=== PATIENT | female | born 1980 | race Caucasian/White ===

== ENCOUNTER 2017-03-08 09:08 | Emergency (ER) | payer BC, OTHER ==
[2017-03-08 09:18] VITALS: BP 125/80
--- NOTE | 2017-03-08 09:29 | UC ---
Throat Pain/Nasal Naun HPI - HPI Summary HPI Summary: COUGH X 3 DAYS + NASAL CONGESTION , PRODUCTIVE COUGH , FEVER, CHILLS, BODY ACHES - History of Current Complaint Chief Complaint: UCGeneralIllness Stated Complaint: FLU SYMPTOMS Time Seen by Provider: 03/08/17 09:18 Hx Obtained From: Patient Hx Last Menstrual Period: 02/26/17 ?: No Onset/Duration: Gradual Onset, Lasting Days - 2, Still Present Severity: Moderate Cough: Productive - YELLOW SPUTUM Associated Signs & Symptoms: Positive: Nasal Discharge, Fever - Allergies/Home Medications Allergies/Adverse Reactions: Allergies Allergy/AdvReac Type Severity Reaction Status Date / Time Azithromycin Allergy Severe Nausea And Verified 03/08/17 09:18 Vomiting Erythromycin Allergy Severe Nausea And Verified 03/08/17 09:18 Vomiting Home Medications: Home Medications NK [No Home Medications Reported] 03/08/17 [History Confirmed 03/08/17] PMH/Surg Hx/FS Hx/Imm Hx Endocrine History: Diabetes Respiratory History: Asthma - Surgical History Surgical History: Yes Surgery Procedure, Year, and Place: ear tubes. bariatric Surgery - Family History Known Family History: Positive: Diabetes - Social History Alcohol Use: None Substance Use Type: None Smoking Status (MU): Never Smoked Tobacco - Immunization History Most Recent Influenza Vaccination: not this season Review of Systems Constitutional: Negative Skin: Negative Eyes: Negative ENT: Nasal Discharge Respiratory: Cough Cardiovascular: Negative Gastrointestinal: Negative Is Patient Immunocompromised?: No All Other Systems Reviewed And Are Negative: Yes Physical Exam Triage Information Reviewed: Yes Appearance: No Pain Distress, Pain Distress, Obese Vital Signs: Initial Vital Signs Temp 98.8 F 03/08/17 09:13 Pulse 85 03/08/17 09:13 Resp 18 03/08/17 09:13 BP 125/80 03/08/17 09:13 Pulse Ox 100 03/08/17 09:13 Vital Signs Reviewed: Yes Eyes: Positive: Conjunctiva Clear ENT: Positive: Normal ENT inspection, Hearing grossly normal, Pharynx normal, Nasal congestion, Nasal drainage Neck: Positive: Supple, Nontender, No Lymphadenopathy Respiratory: Positive: Chest non-tender, Lungs clear, Normal breath sounds, No respiratory distress Cardiovascular: Positive: RRR, No Murmur, Pulses Normal Abdominal Exam: Normal Musculoskeletal Exam: Normal Neurological: Positive: Alert Skin Exam: Normal Throat Pain/Nasal Course/Dx - Differential Dx/Diagnosis Provider Diagnoses: VIRAL ILLNESS Discharge - Discharge Plan Condition: Stable Disposition: HOME Patient Education Materials: Viral Syndrome (ED) Forms: *Work Release Referrals: Humphrey Mckeon MD [Primary Care Provider] - 7 Days
== END 2017-03-08 09:30 | disposition home or self-care (01) ==
LOC: UCCORT 09:08
DX: B34.9 Viral infection, unspecified (principal)
CPT/HCPCS: 99211; G0463

== ENCOUNTER 2017-08-06 19:53 | Emergency (ER) | payer BC ==
[2017-08-06 20:02] VITALS: BP 150/81
--- NOTE | 2017-08-06 20:22 | UC ---
Complaint Female HPI - HPI Summary HPI Summary: For 1.5 weeks pt has noticed vulvar irritation, dryness, itching, no discharge. 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 PMD diagnosed PCOS, but has seen repro endo since then and no one has supported that. Gets regular menses, LMP 07/18/17. No longer diabetic since bariatric surgery. Denies any concerns about STIs, only sexually active with . Has tried using topical abx ointment without relief. - History Of Current Complaint Chief Complaint: UCGU Stated Complaint: VAGINAL IRRITATION Time Seen by Provider: 08/06/17 20:07 Hx Obtained From: Patient Hx Last Menstrual Period: 07/18/17 ?: No Onset/Duration: Gradual Onset, Lasting Days Timing: Constant Severity Initially: Mild Severity Currently: Moderate Pain Intensity: 4 Character: Dull, Burning Aggravating Factor(s): Urination Alleviating Factor(s): Position Associated Signs And Symptoms: Negative: Vaginal Discharge, Vomiting(# Of Episodes =) - Allergies/Home Medications Allergies/Adverse Reactions: Allergies Allergy/AdvReac Type Severity Reaction Status Date / Time azithromycin Allergy Nausea And Verified 08/06/17 20:02 Vomiting erythromycin base Allergy Nausea And Verified 08/06/17 20:02 Vomiting PMH/Surg Hx/FS Hx/Imm Hx Endocrine History: Diabetes - hx of, no longer active Respiratory History: Asthma - Surgical History Surgical History: Yes Surgery Procedure, Year, and Place: ear tubes. bariatric Surgery - Family History Known Family History: Positive: Diabetes - Social History Lives: With Family Alcohol Use: None Substance Use Type: None Smoking Status (MU): Never Smoked Tobacco - Immunization History Most Recent Influenza Vaccination: not this season Review of Systems Constitutional: Negative Skin: Negative Eyes: Negative ENT: Negative Respiratory: Negative Cardiovascular: Negative Gastrointestinal: Negative Genitourinary: Vaginal/Penile Burning, Vaginal/Penile Itching, Vaginal/Penile Pain Motor: Negative Neurovascular: Negative Musculoskeletal: Negative Neurological: Negative Psychological: Negative Is Patient Immunocompromised?: No All Other Systems Reviewed And Are Negative: Yes Physical Exam Triage Information Reviewed: Yes Appearance: No Pain Distress, Obese Vital Signs: Initial Vital Signs Temp 97.6 F 08/06/17 19:59 Pulse 72 08/06/17 19:59 Resp 18 08/06/17 19:59 BP 150/81 08/06/17 19:59 Pulse Ox 100 08/06/17 19:59 Vital Signs Reviewed: Yes Eye Exam: Normal Eyes: Positive: Conjunctiva Clear ENT Exam: Normal ENT: Positive: Normal ENT inspection, Hearing grossly normal, Pharynx normal, TMs normal Dental Exam: Normal Neck exam: Normal Neck: Positive: Supple, Nontender, No Lymphadenopathy Respiratory Exam: Normal Respiratory: Positive: Chest non-tender, Lungs clear, Normal breath sounds, No respiratory distress, No accessory muscle use Cardiovascular Exam: Normal Cardiovascular: Positive: RRR, No Murmur Pelvic Exam: Positive: Speculum Exam Normal, No Cerv. Motion Tender, Discharge - white, some curd-like. Negative: External Exam Normal - marked vulvar swelling and erythema, pt displays severe itching discomfort during exam Musculoskeletal Exam: Normal Neurological Exam: Normal Neurological: Positive: Alert Psychological Exam: Normal Skin Exam: Normal Complaint Female Dx - Differential Dx/Diagnosis Provider Diagnoses: Yeast vulvovaginitis Discharge - Sign-Out/Discharge Documenting (check all that apply): Discharge/Admit/Transfer - Discharge Plan Condition: Stable Disposition: HOME Prescriptions: Fluconazole [Diflucan 150 MG (NF)] 150 mg PO ONCE #1 tab Patient Education Materials: Yeast Infection (ED) Referrals: Humphrey Mckeon MD [Primary Care Provider] - 1 Week Additional Instructions: Use a 3-day yeast suppository medication in addition to the pill. If you need, you can do an additional 3 days. Please see your primary care provider if that does not fully reverse your symptoms. - Billing Disposition and Condition Condition: STABLE Disposition: HOME
--- NOTE | 2017-08-08 15:19 | UC ---
- Progress Note Progress Note: Culture with Anat - pt was treated with diflucan. No change. F/u if symptoms persist. Discharge - Sign-Out/Discharge Documenting (check all that apply): Post-Discharge Follow Up - Discharge Plan Condition: Stable Disposition: HOME Prescriptions: Fluconazole [Diflucan 150 MG (NF)] 150 mg PO ONCE #1 tab Patient Education Materials: Yeast Infection (ED) Referrals: Humphrey Mckeon MD [Primary Care Provider] - 1 Week Additional Instructions: Use a 3-day yeast suppository medication in addition to the pill. If you need, you can do an additional 3 days. Please see your primary care provider if that does not fully reverse your symptoms. - Billing Disposition and Condition Condition: STABLE Disposition: HOME
== END 2017-08-06 20:42 | disposition home or self-care (01) ==
LOC: UCEAST 19:53
DX: B37.3 Candidiasis of vulva and vagina (principal); J45.909 Unspecified asthma, uncomplicated; Z88.1 Allergy status to other antibiotic agents
CPT/HCPCS: 87480; 87491; 87510; 87591; 87661; 99212; G0463

== ENCOUNTER 2018-03-06 16:01 | Emergency (ER) | payer BC ==
[2018-03-06 16:09] VITALS: BP 133/74
--- NOTE | 2018-03-06 16:46 | UC ---
Lower Extremity/Ankle HPI - HPI Summary HPI Summary: 37 y/o female with PMh + for DM in remission, presents with L foot pain since tuesday, was moving her home over the weekend, increased pain with walking, standing, bending foot. + swelling today with increased pain. no prior injuries or accidents, denies trauma. no numbness/ tingling. - History of Current Complaint Chief Complaint: UCLowerExtremity Stated Complaint: FOOT INJURY Time Seen by Provider: 03/06/18 16:28 Hx Obtained From: Patient Hx Last Menstrual Period: 02/03/18 Onset/Duration: Sudden Onset, Lasting Days - since 03/04, swelling 03/06 Severity Initially: Moderate Severity Currently: Moderate Pain Intensity: 6 Pain Scale Used: 0-10 Numeric - Allergies/Home Medications Allergies/Adverse Reactions: Allergies Allergy/AdvReac Type Severity Reaction Status Date / Time azithromycin Allergy Nausea And Verified 03/06/18 16:10 Vomiting erythromycin base Allergy Nausea And Verified 03/06/18 16:10 Vomiting Home Medications: Home Medications NK [No Home Medications Reported] 03/06/18 [History Confirmed 03/06/18] PMH/Surg Hx/FS Hx/Imm Hx Previously Healthy: No - h/o DM remission - Surgical History Surgical History: Yes Surgery Procedure, Year, and Place: ear tubes. bariatric Surgery - Family History Known Family History: Positive: Diabetes - Social History Alcohol Use: None Substance Use Type: None Smoking Status (MU): Never Smoked Tobacco - Immunization History Most Recent Influenza Vaccination: not this season Review of Systems All Other Systems Reviewed And Are Negative: Yes Musculoskeletal: Positive: Arthralgia, Edema, Myalgia Is Patient Immunocompromised?: No Physical Exam Triage Information Reviewed: Yes Appearance: Well-Appearing, No Pain Distress, Well-Nourished Vital Signs: Initial Vital Signs Temp 98.2 F 03/06/18 16:06 Pulse 72 03/06/18 16:06 Resp 18 03/06/18 16:06 BP 133/74 03/06/18 16:06 Pulse Ox 100 03/06/18 16:06 Musculoskeletal Exam: Normal Musculoskeletal: Positive: Strength Intact - strength intact with ankle pro, sup , flex, ext, abd, add., ROM Intact - full toe, ankles ROM intact, Edema @ - over distal 1st metatarsal with TTP over Neurological Exam: Normal Neurological: Positive: Other: - PT DP 2+ Skin Exam: Normal Skin: Positive: Other - no ecchymosis, no open wounds/ sores. Lower Extremity Course/Dx - Course Course Of Treatment: radiograph- negative for fracture, post-op shoe given, continue to wear if symptoms improve may change to hard heeled shoe. FOllow up with orth oif no improvement. NSAIDs for pain, Elevate, ice - Differential Dx/Diagnosis Differential Diagnosis/HQI/PQRI: Fracture (Closed), Fracture (Open) Provider Diagnosis: Foot pain, left Discharge - Sign-Out/Discharge Documenting (check all that apply): Patient Departure All imaging exams completed and their final reports reviewed: Yes - Discharge Plan Condition: Good Disposition: HOME Patient Education Materials: Foot Fracture in Adults (ED) Forms: *Work Release Referrals: Humphrey Mckeon MD [Primary Care Provider] - Gopal Alston MD [Medical Doctor] - Additional Instructions: - Post op shoe given for possible stress fracture - IF symptoms continue, follow up with orthopedics within 3-5 days - If symptoms improve, progress to hard heeled shoe x 1-2 weeks - Elevate, Ice - Motrin /tylenol/ Naproxen as needed for pain - Billing Disposition and Condition Condition: GOOD Disposition: Home
== END 2018-03-06 17:05 | disposition home or self-care (01) ==
LOC: UCEAST 16:01
DX: M79.672 Pain in left foot (principal); X50.0XXA Overexertion from strenuous movement or load, initial encounter; Y93.89 Activity, other specified; Y92.009 Unspecified place in unspecified non-institutional (private) residence as the place of occurrence of the external cause; Z88.1 Allergy status to other antibiotic agents
CPT/HCPCS: 99212; G0463

== ENCOUNTER 2018-03-26 08:24 | Emergency (ER) | payer BC ==
--- OUTSIDE RECORDS SUMMARY | 2018-03-26 08:35 | XMS REPORT | Continuity of Care Document ---
:1980 External Reference #:[id number] Author Name Ankur Smiley Care Team Providers Name Role Phone Hans Pérez III, MD Primary Care Physician Unavailable Payers Type Date Identification Numbers Payment Provider Subscriber Policy Number: [id number] BS Joe Dougherty PayID: [id number] [address] [address] [place] [address] Effective: 2015 Policy Number: [id number] BS Joe Dougherty Expires: 2015 PayID: [id number] [address] [address] [place] [address] Expires: 2016 Policy Number: [id number] Medicaid Oscar Dougherty Group Name: 1 1 [address] PayID: [id number] [place] [address] Expires: 2016 Policy Number: [id number] Minh Oscar Dougherty Group Name: [id number] [address] PayID: [id number] [place] [address] Advance Directives Type Date Description Status Comment Other Directive 08/21/2013 Health Care Proxy Current and Verified Problems Date Description Provider Status Onset: 08/02/2013 Hyperlipidemia Nurse Visit C Active Onset: 08/02/2013 Type 2 diabetes mellitus Nurse Visit C Active Onset: 08/02/2013 Morbid obesity Kim Desir M.D. Active Onset: 02/25/2014 Right upper quadrant pain Humphrey Mckeon M.D. Active Onset: 02/25/2014 Backache Humphrey Mckeon M.D. Active Onset: 02/25/2014 Type II diabetes mellitus Humphrey Mckeon M.D. Active uncontrolled Onset: 05/02/2014 Hypersomnia with sleep apnea Jay Paz M.D. Active Onset: 07/18/2014 Obstructive sleep apnea syndrome Jay Paz M.D. Active Onset: 05/25/2016 Mixed hyperlipidemia Humphrey Mckeon M.D. 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 Tobacco Use Start: Unknown Never Smoked Cigarettes Smoking Status Reviewed: 03/17/18 Never Smoked Cigarettes ETOH Use Drinks Alcoholic Beverages Rarely Tobacco Use Start: Unknown Patient has never smoked Exercise Type/Frequency walking few times per week Allergies, Adverse Reactions, Alerts Date Description Reaction Status Severity Comments 07/31/2013 Erythromycin Active 07/31/2013 Azithromycin Active 12/11/2013 Seasonal Active 04/28/2015 [place] Active Medications Medication Date Status Form Strength Qnty SIG Indications Ordering Provider Vitamin D 02/09/ Active Capsules [id number] 12cap once weekly Miguel Angel (Ergocalcifero 2018 s x 12 weeks ALISE Rodas l) then start takign 1000 units daily Magnesium 02/09/ Active Tablets 400(241.3 30tab 1 by mouth Miguel Angel Oxide 2018 Mg) mg s every day ALISE Rodas Ferrous 02/09/ Active Tablets 325(65Fe) 30tab take one Miguel Angel Sulfate 2018 mg s tablet once ALISE Rodas daily Ventolin HFA / Active Aerosol 108(90Bas 1unit 2 puffs by Zsofia 0000 e) s mouth four Barry, mcg/Act times a day [employer] WORK[employer] as needed Medrol 09/16/ Hx TBPK 4mg 21uni take as M75.41 Amber 2018 - ts directed by Gio, 01/23/ packaging 2017 Sertraline HCL 10/29/ Hx Tablets 25mg 30tab 1 by mouth F34.1 Hans Aquino 2017 - s every day Elisa 09/09/ Tao 2017 Sertraline HCL 10/12/ Hx Tablets 50mg 30tab 1 by mouth F34.1 Hans Aquino 2017 - s every day Elisa, 10/29/ M.D. 2017 Sertraline HCL 09/09/ Hx Tablets 25mg 60tab 1 by mouth F34.1 Hans Aquino 2017 - s every day Elisa, 10/12/ M.D. 2017 Vitamin D-1000 05/25/ Hx Tablets 1000Unit 30tab 4 by mouth Humphrey Zambrano 2017 - s every day Pachikara Strength 09/09/ , M.D. 2017 Doxycycline 10/06/ Hx Tablets 100mg 28tab Finished R21 Hans Aquino Hyclnico 2015 - s Elisa, 10/12/ M.D. 2016 Freestyle Lite 02/14/ Hx Device 1unit check Shola Blood Glucose 2014 - s fingerstick Otilia Dee, Monitoring 10/12/ daily M.DMera,FACP System 2017 Tricor 05/31/ Hx Tablets 145mg 30tab 1 by mouth Humphrey 2015 - s every day Linda 06/06/ , M.Otilia 2014 Lovaza 05/31/ Hx Capsules 1gm 120ca 2 cap by Humphrey 2015 - ps mouth twice Dickika 04/28/ a day , M.DMera 2015 Nystatin-Triam 05/13/ Hx Cream 603326-4. 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 Metformin HCL 05/10/ Hx Tablets 1000mg 60tab 1 by mouth 250.02 Humphrey 2015 - s twice a day Linda 04/28/ , M.Otilia 2016 Lotrisone 05/10/ Hx Cream 1-0.05% 100gm twice a day 110.3 Humphrey 2015 - Dickikara 05/13/ , MEllis 2015 Diflucan 05/10/ Hx Tablets 150mg 1tabs 1 tab 1 dose 110.3 Humphrey 2015 - as needed Dickikara 04/28/ , M.Otilia 2016 Atorvastatin 05/10/ Hx Tablets 20mg 30tab 1 tab at 272.4 Humphrey Calcium 2014 - s bedtime Pacherasto 07/17/ , M.DMera 2014 Freestyle Lite 05/10/ Hx Strips 100un test daily E11.65 [place] Test 2014 - and as need, Pachika10/12/ dx code: , M.DMera 2016 250.02 Freestyle 05/10/ Hx Misc 100un daily and as E11.65 Humphrey Lancets 2014 - needed Linda , M.DMera 2016 Metformin HCL 05/01/ Hx Tablets 1000mg 1 by mouth Unknown 2014 - twice a day 2014 Januvia 02/25/ Hx Tablets 100mg 30tab 1 by mouth 250.02 Humph[facility] 2013 - [facility] 2016 Singulair 12/19/ Hx Tablets 10mg 30tab take 1 tab 995.3 Zsofia 2013 - s po q day Barry 05/13/ [employer] 2014 Accucheck 11/01/ Hx 100un check bs 2 250.00 Kim Paola Chem 2013 - its times/day Thang, Everardo 05/10/ M.DMera 2014 Accucheck 11/01/ Hx 100un pt to ck bs 250.00 Kim Jami 2013 - its 2x daily. in Thang, (Soft-Clix) 05/10/ the morning M.D. 2014 fasting and 2 hours after dinner dx code 250.02 Accucheck 11/01/ Hx as directed 250.00 Kim Glucomter Gaby - Thang 10/12/ M.DMera 2016 Glipizide 10/26/ Hx Tablets 5mg 60tab 1 by mouth Humphrey 2013 - s twice a day Linda 04/28/ , M.D. 2016 Lisinopril 08/21/ Hx Tablets 2.5mg 30tab Take One 791.0 Kim 2013 - s Tablet By Thang 04/28/ Mouth Every M.D. 2015 Day Fenofibrate 08/21/ Hx Tablets 160mg 30tab take one 272.4 Humphrey 2013 - s tablet by Linda 04/28/ mouth every , M.D. 2015 day Metformin HCL 07/31/ Hx Tablets ER 750mg 60tab 2 tab by 250.00 Kim ER 2013 - 24HR s mouth Desir, 02/25/ Neymar.Otilia 2013 Lantus 07/31/ Hx Solution 100Unit/M 3vial 50 units at 250.00 Humphrey 2013 - L s night Linda , Tao 2015 Insulin 07/31/ Hx Misc 28G X 100un use daily as 250.00 Humphrey Syringe 2013 - /2" 1 ML its directed Dickikara , Tao 2016 Metformin HCL / Hx Tablets 1000mg 180ta 1 by mouth Unknown 0000 - bs twice a day 2013 Glipizide / Hx Tablets 5mg 60tab 1 by mouth Unknown 0000 - s twice a day 2013 Omeprazole / Hx Capsules DR 20mg 1 po daily Unknown 0000 - 2015 Multi Vitamin /00/ Hx Tablets Unknown Daily 0000 - 2016 Biotin /00/ Hx 10,000mcg not taking 1 Unknown 0000 - po daily 2016 /00/ Hx Tablets 1 by mouth Unknown Vitamin 0000 - every day 2016 Estradiol /00/ Hx Tablets 2mg vaginally 2 Unknown 0000 - times every 2016 Prednisone 00/00/ Hx Tablets 5mg 1 by mouth 2 Unknown 0000 - times every 2016 Aspir-Low 00/ Hx Tablets DR 81mg 1 by mouth Unknown 0000 - every day 2016 Multi-Vitamin /00/ Hx Tablets 1 by mouth Unknown Daily 0000 - every day 2017 Immunizations CPT Code Status Date Vaccine Reaction Lot # [id number] Given 01/23/2018 Influenza Virus Vaccine, No immediate [id number] Quadrivalent, Split, reaction... Preservative Free [id number] Given 12/19/2013 Influenza Virus Vaccine, [id number] Quadrivalent, Split, Preservative Free Vital Signs Date Vital Result Comment 03/17/2018 8:21am Height 67 inches 5'7" Weight 265.00 lb Heart Rate 80 /min Respiratory Rate 18 /min Body Temperature 98.5 F Pain Level 4 BMI (Body Mass Index) 41.5 kg/m2 01/23/2018 1:45pm Height 67 inches 5'7" Weight 263.00 lb Heart Rate 82 /min BP Systolic 124 mmHg BP Diastolic 77 mmHg Body Temperature 98.1 F O2 % BldC Oximetry 100 % BMI (Body Mass Index) 41.2 kg/m2 09/16/2017 8:59am Height 67 inches 5'7" Weight 253.00 lb BP Systolic 128 mmHg BP Diastolic 82 mmHg Respiratory Rate 18 /min Body Temperature 97.7 F Pain Level 7 BMI (Body Mass Index) 39.6 kg/m2 09/09/2017 8:57am Height 67 inches 5'7" Weight 253.00 lb Heart Rate 72 /min BP Systolic Sitting 118 mmHg BP Diastolic Sitting 68 mmHg Pain Level 3 O2 % BldC Oximetry 99 % BMI (Body Mass Index) 39.6 kg/m2 10/12/2016 8:57am Height 67 inches 5'7" Weight 230.12 lb Heart Rate 69 /min BP Systolic Sitting 130 mmHg BP Diastolic Sitting 62 mmHg Body Temperature 97.6 F O2 % BldC Oximetry 99 % BMI (Body Mass Index) 36.0 kg/m2 09/09/2016 12:00pm Weight 230.00 lb Heart Rate 77 /min BP Systolic 108 mmHg BP Diastolic 62 mmHg O2 % BldC Oximetry 99 % 05/25/2016 2:18pm Height 67 inches 5'7" Weight 218.25 lb Heart Rate 78 /min BP Systolic Sitting 122 mmHg BP Diastolic Sitting 76 mmHg Body Temperature 97.6 F O2 % BldC Oximetry 99 % BMI (Body Mass Index) 34.2 kg/m2 02/06/2016 9:13am Weight 211.12 lb Heart Rate 65 /min BP Systolic 120 mmHg BP Diastolic 80 mmHg Body Temperature 98.0 F O2 % BldC Oximetry 98 % 10/07/2015 4:58pm Weight 207.00 lb Heart Rate 60 /min BP Systolic Sitting 116 mmHg BP Diastolic Sitting 78 mmHg Body Temperature 97.9 F O2 % BldC Oximetry 98 % 04/28/2015 1:08pm Height 67 inches 5'7" Weight 214.00 lb Heart Rate 68 /min BP Systolic Sitting 112 mmHg BP Diastolic Sitting 68 mmHg Body Temperature 97.1 F O2 % BldC Oximetry 98 % BMI (Body Mass Index) 33.5 kg/m2 07/18/2014 9:45am Height 67 inches 5'7" Weight 299.00 lb Heart Rate 89 /min BP Systolic Sitting 134 mmHg BP Diastolic Sitting 82 mmHg O2 % BldC Oximetry 97 % BMI (Body Mass Index) 46.8 kg/m2 Neck Circumference in inches 16 05/10/2014 8:17am Height 67 inches 5'7" Weight 289.75 lb Heart Rate 80 /min BP Systolic Sitting 149 mmHg BP Diastolic Sitting 95 mmHg BMI (Body Mass Index) 45.4 kg/m2 05/02/2014 12:59pm Height 67 inches 5'7" Weight 296.00 lb Heart Rate 90 /min BP Systolic Sitting 134 mmHg BP Diastolic Sitting 82 mmHg Respiratory Rate 20 /min Body Temperature 97.2 F O2 % BldC Oximetry 98 % BMI (Body Mass Index) 46.4 kg/m2 Neck Circumference in inches 16 02/25/2014 1:38pm Weight 301.50 lb Heart Rate 80 /min BP Systolic Sitting 144 mmHg BP Diastolic Sitting 82 mmHg Body Temperature 97.8 F O2 % BldC Oximetry 98 % 12/19/2013 8:27am Weight 299.00 lb Heart Rate 68 /min BP Systolic Sitting 119 mmHg BP Diastolic Sitting 75 mmHg Body Temperature 97.2 F O2 % BldC Oximetry 98 % 12/11/2013 3:51pm Weight 295.00 lb Heart Rate 68 /min BP Systolic Sitting 142 mmHg BP Diastolic Sitting 96 mmHg BP Systolic Standing 120 mmHg BP Diastolic Standing 76 mmHg Body Temperature 97.6 F O2 % BldC Oximetry 97 % 11/01/2013 3:44pm Weight 295.00 lb Heart Rate 84 /min BP Systolic Sitting 128 mmHg BP Diastolic Sitting 80 mmHg 08/21/2013 3:35pm Weight 294.00 lb Heart Rate 80 /min BP Systolic Sitting 128 mmHg BP Diastolic Sitting 72 mmHg 07/31/2013 2:03pm Height 66.5 inches 5'6.50" Weight 291.25 lb Heart Rate 89 /min BP Systolic Sitting 132 mmHg BP Diastolic Sitting 85 mmHg BMI (Body Mass Index) 46.3 kg/m2 Results Test Date Facility Test Result H/L Range Note Thyroid Panel 01/25/2018 [facility] Free T4 (Free 0.78 ng/dL N 0.61-1.[address] Thyroxine) [place] [address] [phone] Thyroxine 9.80 g/mL N 6.09-12.23 TSH (Thyroid Stim Horm) 1.58 mcIU/mL N 0.34-5.60 CBC Auto Diff 01/25/2018 [facility] White Blood 6.1 10^3/uL N 3.5-10.[address] [place] [address] [phone] Red Blood Count 4.82 10^6/uL N 4.00-5.40 Hemoglobin 8.5 g/dL Low 12.0-16.0 Hematocrit 28 % Low 35-47 Mean Corpuscular Volume 58 fL Low 80-97 Mean Corpuscular Hemoglobin 18 pg Low 27-31 Mean Corpuscular HGB Conc 31 g/dL N 31-36 Red Cell Distribution Width 18 % High 10.5-15 Platelet Count 234 10^3/uL N 150-450 Mean Platelet Volume 8.7 um3 N 7.4-10.4 Abs Neutrophils 3.6 10^3/uL N 1.5-7.7 Abs Lymphocytes 1.4 10^3/uL N 1.0-4.8 Abs Monocytes 0.7 10^3/uL N 0-0.8 Abs Eosinophils 0.3 10^3/uL N 0-0.6 Abs Basophils 0.1 10^3/uL N 0-0.2 Abs Nucleated RBC 0 10^3/uL Granulocyte % 59.4 % N 38-83 Lymphocyte % 22.7 % Low 25-47 Monocyte % 12.0 % High 0-7 Eosinophil % 5.0 % N 0-6 Basophil % 0.9 % N 0-2 Nucleated Red Blood Cells % 0 Vitamin B12 And 01/25/2018 [facility] Vitamin B12 366 pg/mL N 180-914 1 Folate Serum [address] [place] [address] [phone] Folic Acid (Folate) 14.03 ng/mL >3.99 Iron & Iron Binding 01/25/2018 [facility] Iron < 15 g/dL Low 50-212 [address] [place] [address] [phone] Unsaturated Iron Binding < 502 g/dL Total Iron Binding Capacity 517 g/dL High 250-450 Transferrin 369 mg/dL High 203-362 % Iron Saturation 3 % Low 15-55 Laboratory test 01/25/2018 [facility] Magnesium 1.6 mg/dL Low 1.9-2.7 finding [address] [place] [address] [phone] Vitamin D Total 25(Oh) 11.3 ng/mL Low 20-50 Basic Metabolic Panel 01/25/2018 [facility] Sodium 138 mmol/L N 135-[address] [place] [address] [phone] Potassium 4.4 mmol/L N 3.5-5.0 Chloride 105 mmol/L N 101-111 Co2 Carbon Dioxide 25 mmol/L N 22-32 Anion Gap 8 mmol/L N 2-11 Glucose 191 mg/dL High 70-100 Blood Urea Nitrogen 7 mg/dL N 6-24 Creatinine 0.54 mg/dL N 0.51-0.95 BUN/Creatinine Ratio 13.0 N 8-20 Calcium 8.7 mg/dL N 8.6-10.3 Egfr Non- 128.5 >60 Egfr 155.5 >60 2 Laboratory test 01/25/2018 [facility] Hemoglobin A1c 6.5 % High 4.0-5.6 [address] (Glyco HGB) [place] [address] [phone] Pathologist Review (SEE NOTE) 4 Laboratory 08/06/2017 [facility] Gardnerella/Yeast: SEE RESULT 5, 6 test finding [address] [place] [address] [phone] GC/Chlamydia 08/06/2017 [facility] Chlamydia Negative Negative Amplified Rna [address] [place] [address] [phone] Neisseria gonorrhoeae (GC) Rna Negative Negative Laboratory test 08/06/2017 [facility] Trichomonas Negative Negative [address] [place] [address] [phone] Laboratory test 05/25/2016 [facility] Hemoglobin A1c 5.8 5-7 finding Laboratory test 10/09/2015 [facility] Lyme Disease Negative N Negative [address] [place] [address] [phone] Laboratory test 04/28/2015 [facility] Hemoglobin A1c 5.8 5-7 finding Urine 04/18/2015 [facility] Ur Microalbumin 170.0 mg/L N Microalbumin [address] (mg/L) [place] [address] [phone] Urine Creatinine 283.01 mg/dL N Urine Microalbumin/Creatinine 60.0 ug/mg High <31 Lipid Panel 04/18/2015 [facility] Triglycerides 104 mg/dL N [address] [place] [address] [phone] Cholesterol 153 mg/dL N 10 HDL Cholesterol 46.7 mg/dL N 11 LDL Cholesterol 86 mg/dL N 12 CMP Panel 04/18/2015 [facility] Sodium 138 mmol/L N 133-[address] [place] [address] [phone] Potassium 4.0 mmol/L N 3.5-5.0 Chloride 103 mmol/L N 101-111 Co2 Carbon Dioxide 29 mmol/L N 22-32 Anion Gap 6 mmol/L N 2-11 Glucose 110 mg/dL High 70-100 Blood Urea Nitrogen 11 mg/dL N 6-24 Creatinine 0.60 mg/dL N 0.51-0.95 BUN/Creatinine Ratio 18.3 N 8-20 Calcium 9.6 mg/dL N 8.6-10.3 Total Protein 6.9 g/dL N 6.4-8.9 Albumin 4.1 g/dL N 3.2-5.2 Globulin 2.8 g/dL N 2-4 Albumin/Globulin Ratio 1.5 N 1-3 Total Bilirubin 0.70 mg/dL N 0.2-1.0 Alkaline Phosphatase 82 U/L N 34-104 Alt 22 U/L N 7-52 Ast 17 U/L N 13-39 Egfr Non- 115.9 N >60 Egfr 149.0 N >60 13 Laboratory test 02/26/2015 [facility] Rapid Strep Negative N Negative [address] [place] [address] [phone] Laboratory test 02/26/2015 [facility] Throat-Beta SEE RESULT [address] [place] [address] [phone] Urine 05/10/2014 Ur Microalbumin 205.0 mg/L N 16 Microalbumin (mg/L) Random Urine Creatinine 69.25 mg/dL N Urine Microalbumin/Creatinine 296.0 High Less Than 31 Comp Metabolic Panel 05/10/2014 Sodium 132 mmol/L Low 133-145 Potassium 4.6 mmol/L N 3.5-5.0 Chloride 95 mmol/L Low 101-111 Co2 Carbon Dioxide 28 mmol/L N 22-32 Anion Gap 9 mmol/L N 2-11 Glucose 346 mg/dL High 70-100 Blood Urea Nitrogen 10 mg/dL N 6-24 Creatinine 0.54 mg/dL N 0.51-0.95 BUN/Creatinine Ratio 18.5 N 8-20 Calcium 9.7 mg/dL N 8.6-10.3 Total Protein 7.4 g/dL N 6.4-8.9 Albumin 4.0 g/dL N 3.2-5.2 Globulin 3.4 g/dL N 2-4 Albumin/Globulin Ratio 1.2 N 1-3 Total Bilirubin 0.50 mg/dL N 0.2-1.0 Alkaline Phosphatase 100 U/L N 34-104 Alt 88 U/L High 7-52 Ast 80 U/L High 13-39 Egfr Non- 130.8 N >60 Egfr 168.3 N >60 17 Laboratory test 05/10/2014 TSH (Thyroid Stimulating 1.73 IU/mL N 0.34- 5.60 18 finding Horm) Lipid Profile 05/10/2014 Triglycerides 1238 mg/dL N 19 (Trig/Chol/HDL) Cholesterol 295 mg/dL N 20 HDL Cholesterol 37.6 mg/dL N 21 LDL Cholesterol (SEE NOTE) mg/dL N 22 Laboratory test 05/10/2014 [facility] Hemoglobin A1c 11.2 High 5-7 finding Urinalysis Profile 02/25/2014 [facility] Urine Color Yellow N [address] [place] [address] [phone] Urine Appearance Clear N Urine Specific [place] 1.033 High 1.010-1.030 Urine pH 5.0 N 5-9 Urine Urobilinogen Negative N Negative Urine Ketones Negative N Negative Urine Protein Negative N Negative Urine Leukocytes Negative N Negative Urine Blood Negative N Negative Urine Nitrite Negative N Negative Urine Bilirubin Negative N Negative Urine Glucose 3+(>=500 mg/dL) Abnormal Negative CBC Auto 02/25/2014 [facility] White Blood 11.3 10^3/uL High 4.8-10.[address] [place] [address] [phone] Red Blood Count 4.89 10^6/uL N 4.0-5.4 Hemoglobin 13.5 g/dL N 12.0-16.0 Hematocrit 40 % N 35-47 Mean Corpuscular Volume 81 fL N 80-97 Mean Corpuscular Hemoglobin 28 pg N 27-31 Mean Corpuscular HGB Conc 34 g/dL N 31-36 Red Cell Distribution Width 13 % N 10.5-15 Platelet Count 251 10^3/uL N 150-450 Mean Platelet Volume 8 um3 N 7.4-10.4 Abs Neutrophils 6.7 10^3/uL N 1.5-7.7 Abs Lymphocytes 3.3 10^3/uL N 1.0-4.8 Abs Monocytes 0.8 10^3/uL N 0-0.8 Abs Eosinophils 0.4 10^3/uL N 0-0.6 Abs Basophils 0.1 10^3/uL N 0-0.2 Abs Nucleated RBC 0 10^3/uL N Granulocyte % 59.4 % N 38-83 Lymphocyte % 29.2 % N 25-47 Monocyte % 6.9 % N 1-9 Eosinophil % 3.7 % N 0-6 Basophil % 0.8 % N 0-2 Nucleated Red Blood Cells % 0 N Laboratory test 02/25/2014 [facility] Serum Negative N Negative [address] [place] [address] [phone] Comp Metabolic 02/25/2014 [facility] Sodium 134 mmol/L N 133- [address] [place] [address] [phone] Potassium 3.8 mmol/L N 3.5-5.0 24 Chloride 101 mmol/L N 101-111 Co2 Carbon Dioxide 25 mmol/L N 22-32 Anion Gap 8 mmol/L N 2-11 Glucose 191 mg/dL High 70-100 Blood Urea Nitrogen 12 mg/dL N 6-24 Creatinine 0.49 mg/dL Low 0.51-0.95 BUN/Creatinine Ratio 24.5 High 8-20 Calcium 9.4 mg/dL N 8.6-10.3 Total Protein 7.1 g/dL N 6.4-8.9 Albumin 3.7 g/dL N 3.2-5.2 Globulin 3.4 g/dL N 2-4 Albumin/Globulin Ratio 1.1 N 1-3 Total Bilirubin 0.40 mg/dL N 0.2-1.0 Alkaline Phosphatase 78 U/L N 34-104 Alt 50 U/L N 7-52 Ast 33 U/L N 13-39 Egfr Non- 147.3 N >60 Egfr 189.4 N >60 25 Laboratory test 02/25/2014 [facility] C Reactive 23.17 High < 5.00 [address] Protein mg/[place] [address] [phone] Lipid Profile 12/03/2013 Triglycerides 222 mg/dL N 27 (Trig/Chol/HDL) Cholesterol 210 mg/dL N 28 HDL Cholesterol 43.0 mg/dL N 29 LDL Cholesterol 123 mg/dL N 30 Comp Metabolic Panel 12/03/2013 Sodium 138 mmol/L N 133-145 Potassium 4.5 mmol/L N 3.7-5.6 Chloride 103 mmol/L N 101-111 Co2 Carbon Dioxide 26 mmol/L N 22-32 Anion Gap 9 mmol/L N 2-11 Glucose 212 mg/dL High 70-100 Blood Urea Nitrogen 11 mg/dL N 6-24 Creatinine 0.57 mg/dL N 0.51-0.95 BUN/Creatinine Ratio 19.3 N 8-20 Calcium 9.6 mg/dL N 8.6-10.3 Total Protein 7.0 g/dL N 6.4-8.9 Albumin 3.9 g/dL N 3.2-5.2 Globulin 3.1 g/dL N 2-4 Albumin/Globulin Ratio 1.3 N 1-3 Total Bilirubin 0.60 mg/dL N 0.2-1.0 Alkaline Phosphatase 58 U/L N 34-104 Alt 81 U/L High 7-52 Ast 83 U/L High 13-39 Egfr Non- 123.7 N >60 Egfr 159.1 N >60 31 CBC Auto Diff 12/03/2013 White Blood Count 9.9 10^3/uL N 4.8-10.8 Red Blood Count 4.80 10^6/uL N 4.0-5.4 Hemoglobin 13.7 g/dL N 12.0-16.0 Hematocrit 40 % N 35-47 Mean Corpuscular Volume 82 fL N 80-97 Mean Corpuscular Hemoglobin 29 pg N 27-31 Mean Corpuscular HGB Conc 35 g/dL N 31-36 Red Cell Distribution Width 13 % N 10.5-15 Platelet Count 288 10^3/uL N 150-450 Mean Platelet Volume 8 um3 N 7.4-10.4 Abs Neutrophils 6.5 10^3/uL N 1.5-7.7 Abs Lymphocytes 2.3 10^3/uL N 1.0-4.8 Abs Monocytes 0.7 10^3/uL N 0-0.8 Abs Eosinophils 0.4 10^3/uL N 0-0.6 Abs Basophils 0.1 10^3/uL N 0-0.2 Abs Nucleated RBC 0.01 10^3/uL N Granulocyte % 65.6 % N 38-83 Lymphocyte % 23.0 % Low 25-47 Monocyte % 6.9 % N 1-9 Eosinophil % 3.9 % N 0-6 Basophil % 0.6 % N 0-2 Nucleated Red Blood Cells % 0.1 N Laboratory test finding 12/03/2013 Ferritin 168.2 ng/mL N 11-307 Vitamin B12 And Folate Serum 12/03/2013 Vitamin B12 479 pg/mL N 180-914 32 Folate > 20.00 ng/mL N >3.99 Laboratory test 12/03/2013 Hemoglobin A1c 9.1 % High Less than 6.0 33 finding Vitamin D, 25 12/03/2013 25-Hydroxy Vitamin <4.0 ng/mL N Hydroxy D2 25-Hydroxy Vitamin D3 26 ng/mL N 25-Hydroxy Vitamin D Total 26 ng/mL N 34 Laboratory test 12/03/2013 Iron 54 g/dL N 50-212 finding Laboratory test 10/26/2013 [facility] TSH (Thyroid 2.22 IU/mL N 0.34-5.[address] Stimulating Horm) [place] [address] [phone] Follicle Stimulating Hormone 4.6 IU/mL N 35 Luteinizing Hormone 3.0 IU/mL N 36 Prolactin 4.8 ng/mL N 1.0-25.0 Testosterone 55.27 ng/dL N 8-60 Estradiol 34.000 pg/mL N 37 Dhea Sulfate 221 g/dL N 31-228 38 Laboratory 10/26/2013 [facility] Hemoglobin A1c 9.3 % High Less 39, 40 test finding [address] than 6.0 [place] [address] [phone] Lipid Profile 10/26/2013 [facility] Triglycerides 230 N 41 (Trig/Chol/HDL [address] mg/dL ) [place] [address] [phone] Cholesterol 206 mg/dL N 42 HDL Cholesterol 48.5 mg/dL N 43 LDL Cholesterol 112 mg/dL N 44 Comp Metabolic Panel 08/02/2013 [facility] Sodium 134 mmol/L N 133-[address] [place] [address] [phone] Potassium 4.5 mmol/L N 3.7-5.6 Chloride 99 mmol/L Low 101-111 Co2 Carbon Dioxide 26 mmol/L N 22-32 Anion Gap 9 mmol/L N 2-11 Glucose 256 mg/dL High 70-100 Blood Urea Nitrogen 9 mg/dL N 6-24 Creatinine 0.53 mg/dL N 0.51-0.95 BUN/Creatinine Ratio 17.0 N 8-20 Calcium 9.0 mg/dL N 8.6-10.3 Total Protein 7.0 g/dL N 6.4-8.9 Albumin 4.0 g/dL N 3.2-5.2 Globulin 3.0 g/dL N 2-4 Albumin/Globulin Ratio 1.3 N 1-3 Total Bilirubin 0.60 mg/dL N 0.2-1.0 Alkaline Phosphatase 80 U/L N 34-104 Alt 79 U/L High 7-52 Ast 79 U/L High 13-39 Egfr Non- 134.6 N >60 Egfr 173.0 N >60 45 Lipid Profile 08/02/2013 [facility] Triglycerides 477 mg/dL N 46 (Trig/Chol/HDL) [address] [place] [address] [phone] Cholesterol 211 mg/dL N 47 HDL Cholesterol 39.6 mg/dL N 48 LDL Cholesterol (SEE NOTE) mg/dL N 49 Urine Microalbumin 07/31/2013 [facility] Ur Microalbumin 83.0 mg /dL N <30 [address] (mg/L) [place] [address] [phone] Urine Creatinine 70.46 mg/dL N Urine Microalbumin/Creatinine 117.7 High Less Than 31 Laboratory test finding 07/31/2013 [facility] Hemoglobin A1c 11.2 High 5-7 1 Normal Range 180 to 914 Indeterminate Range 145 to 180 Deficient Range <145 2 Because ethnic data is not always readily available, this report includes an eGFR for both -Americans and non- Americans. The National Kidney Disease Education Program (NKDEP) does not endorse the use of the MDRD equation for patients that are not between the ages of 18 and 70, are , have extremes of body size, muscle mass, or nutritional status, or are non- or non-. According to the National Kidney Foundation, irrespective of diagnosis, the stage of the disease is based on the level of kidney function: Stage Description GFR(mL/min/1.73 m(2)) 1 Kidney damage with normal or decreased GFR 90 2 Kidney damage with mild decrease in GFR 60-89 3 Moderate decrease in GFR 30-59 4 Severe decrease in GFR 15-29 5 Kidney failure <15 (or dialysis) 3 Therapeutic target for the treatment of diabetes mellitus patients is <7% HBA1C, and in selective patients <6.0%. Please refer to [place] Diabetes Association diabetic care guidelines for further information. 4 Microcytic anemia with red cell indices suggestive of iron deficiency. Additional studies clinically warranted. Reviewed by Dr. Riojas 5 Would you like to order Trichomonas Vaginalis RNA testing? Y [id number] 6 SEE RESULT BELOW Name: OSCAR DOUGHERTY : [address]: Hans Granger MD Acct: [id number] Unit: [id number] AGE: 37 Location: [facility] Re08/06/17 SEX: F Status: DEP ER SPEC: [id number] PATY: 08/06/[address]: Bruna Worley NP REQ: [id number] RECD: 08/07/17-1321 STATUS: [facility] DR: Humphrey Granger MD _ [facility] ORDERED: Roberto,Yeast DNA COMMENTS: Would you like to order Trichomonas Vaginalis RNA testing? Y [id number] Procedure Result Reported Site Gardnerella/Yeast: Vaginal DNA Final 08/08/17- 1045 ML Organism 1 Negative Gardnerella Organism 2 POSITIVE ANAT The presence of G. vaginalis, although suggestive, is not diagnostic for bacterial vaginosis. Results should be interpreted in conjuction with other clinical and laboratory data available. Women with vaginal discharge should be evaluated for risk factors of cervicitis and pelvic inflammatory disease, toxic shock syndrome (S.aureus), and if present, evaluated for organisms not included in this assay such as N. gonorrhoeae, C. trachomatis, Mobiluncus, Mycoplasma and/or Prevotella. Mixed infections may occur. The performance of this test on patient specimens collected during or immediately after antimicrobial therapy is unknown. The presence or absence of Anat species, or G. vaginalis cannot be used as a test for therapeutic success or failure. * ML - Main Lab . END OF REPORT DEPARTMENT OF PATHOLOGY, [address] [place] [address] Eduardo Riojas M.D. Director [facility] # [id number] GC/Chlamydia Source?: Endocervical Trichomonas Source: Endocervical 8 Serologic response to B. burgdorferi infection is not detected, but cannot rule out early infection during which low or undetectable antibody levels to B. burgdorferi may be present. If clinically indicated, a new serum specimen should be submitted in 7-14 days. Test Performed by: [address] [address] Assembl[employer] Piano: Goyo Alexander II, M.D., Ph.D. 9 Desirable <150 Borderline high 150-199 High 200-499 Very High >500 10 Desirable <200 Borderline high 200-239 High >239 11 Low <40 Desirable: 40-60 High: >60 12 Desirable: <100 mg/dL Near Optimal: 100-129 mg/dL Borderline High: 130-159 mg/dL High: 160-189 mg/dL Very High: >189 mg/dL 13 Because ethnic data is not always readily available, this report includes an eGFR for both -Americans and non- Americans. The National Kidney Disease Education Program (NKDEP) does not endorse the use of the MDRD equation for patients that are not between the ages of 18 and 70, are , have extremes of body size, muscle mass, or nutritional status, or are non- or non-. According to the National Kidney Foundation, irrespective of diagnosis, the stage of the disease is based on the level of kidney function: Stage Description GFR(mL/min/1.73 m(2)) 1 Kidney damage with normal or decreased GFR 90 2 Kidney damage with mild decrease in GFR 60-89 3 Moderate decrease in GFR 30-59 4 Severe decrease in GFR 15-29 5 Kidney failure <15 (or dialysis) 14 Business Law Teacher: MANOJ BRISCOE The loader operator and regulatory agencies both recommend that a throat culture for beta strep be performed if a Rapid Group A Strep assay yields a negative result. Therefore a culture will be automatically performed on all negative samples. 15 SEE RESULT BELOW Name: OSCAR DOUGHERTY : [address]: Stephon Larios MD Acct: [id number] Unit: [id number] AGE: 34 Location: [facility] Re02/26/15 SEX: F Status: DEP ER SPEC: [id number] PATY: 02/26/[address] [facility] [address]: Stephon Larios MD REQ: [id number] RECD: 02/27/15 STATUS: GEMINI REES DR: Humphrey Mckeon MD _ SOURCE: THROAT SPDESC: ORDERED: Throat Beta Str Procedure Result Reported Site Throat Beta Strep Culture Final 03/01/15- 1007 ML Negative For Group A Beta Streptococcus * ML - MAIN LAB ([facility]) . END OF REPORT * ML=Testing performed at Main Lab DEPARTMENT OF PATHOLOGY, [address] [place] [address] Eduardo Riojas M.D. Director [facility] # [id number] 16 PT IS FASTING 17 Because ethnic data is not always readily available, this report includes an eGFR for both -Americans and non- Americans. The National Kidney Disease Education Program (NKDEP) does not endorse the use of the MDRD equation for patients that are not between the ages of 18 and 70, are , have extremes of body size, muscle mass, or nutritional status, or are non- or non-. According to the National Kidney Foundation, irrespective of diagnosis, the stage of the disease is based on the level of kidney function: Stage Description GFR(mL/min/1.73 m(2)) 1 Kidney damage with normal or decreased GFR 90 2 Kidney damage with mild decrease in GFR 60-89 3 Moderate decrease in GFR 30-59 4 Severe decrease in GFR 15-29 5 Kidney failure <15 (or dialysis) 18 PT IS FASTING 19 Desirable <150 Borderline high 150-199 High 200-499 Very High >500 20 Desirable <200 Borderline high 200-239 High >239 21 Low <40 Desirable: 40-60 High: >60 22 Unable to calculate LDL as triglyceride is > 400 23 This test detects intact HCG only and is indicated for the early detection of . 24 Potassium reference range changed effective 01/27/14 25 Because ethnic data is not always readily available, this report includes an eGFR for both -Americans and non- Americans. The National Kidney Disease Education Program (NKDEP) does not endorse the use of the MDRD equation for patients that are not between the ages of 18 and 70, are , have extremes of body size, muscle mass, or nutritional status, or are non- or non-. According to the National Kidney Foundation, irrespective of diagnosis, the stage of the disease is based on the level of kidney function: Stage Description GFR(mL/min/1.73 m(2)) 1 Kidney damage with normal or decreased GFR 90 2 Kidney damage with mild decrease in GFR 60-89 3 Moderate decrease in GFR 30-59 4 Severe decrease in GFR 15-29 5 Kidney failure <15 (or dialysis) 26 Acute inflammation: >10.00 27 Desirable <150 Borderline high 150-199 High 200-499 Very High >500 28 Desirable <200 Borderline high 200-239 High >239 29 Low <40 Desirable: 40-60 High: >60 30 Desirable <100 Near Optimal 100-129 Borderline high 130-159 High 160-189 Very High >189 31 Because ethnic data is not always readily available, this report includes an eGFR for both -Americans and non- Americans. The National Kidney Disease Education Program (NKDEP) does not endorse the use of the MDRD equation for patients that are not between the ages of 18 and 70, are , have extremes of body size, muscle mass, or nutritional status, or are non- or non-. According to the National Kidney Foundation, irrespective of diagnosis, the stage of the disease is based on the level of kidney function: Stage Description GFR(mL/min/1.73 m(2)) 1 Kidney damage with normal or decreased GFR 90 2 Kidney damage with mild decrease in GFR 60-89 3 Moderate decrease in GFR 30-59 4 Severe decrease in GFR 15-29 5 Kidney failure <15 (or dialysis) 32 Normal Range 180 to 914 Indeterminate Range 145 to 180 Deficient Range <145 33 Therapeutic target for the treatment of diabetes Mellitus patients is <7% HBA1C, and in selective patients <6.0%.Please refer to [place] Diabetes Association Diabetic care guidelines for further information. 34 -- REFERENCE VALUE -- 25-HYDROXY D TOTAL (D2+D3) Optimum levels in the healthy population are 20-50, patients with bone disease may benefit from higher levels within this range. Test Performed by: [facility] [address] [id number] Assembler Piano: Abel Crook III, M.D. 35 Normally menstruating females - Follicular phase 3 - 9 - Mid-cycle peak 4 - 23 - Luteal phase 1 - 6 Postmenopausal females 16 - 114 36 Normally menstruating females - Follicular Phase 1 - 18 - Mid-Cycle Peak 24 - 105 - Luteal Phase 0.6 - 20 Postmenopausal females 15 - 62 37 Postmenopausal Females < 20 Ovulating females: by day in cycle relative to LH Peak Follicular phase - 12 10-50 - 4 60-200 Mid-cycle - 1 120-375 Luteal phase + 2 50-155 + 6 60-260 + 12 15-115 38 Test Performed by: [facility] [address] [place] [address] Assembler Piano: Abel Crook III, M.D. 39 FASTING 10 HOUR 40 Therapeutic target for the treatment of diabetes Mellitus patients is <7% HBA1C, and in selective patients <6.0%.Please refer to [place] Diabetes Association Diabetic care guidelines for further information. 41 Desirable <150 Borderline high 150-199 High 200-499 Very High >500 42 Desirable <200 Borderline high 200-239 High >239 43 Low <40 Desirable: 40-60 High: >60 44 Desirable <100 Near Optimal 100-129 Borderline high 130-159 High 160-189 Very High >189 45 Because ethnic data is not always readily available, this report includes an eGFR for both -Americans and non- Americans. The National Kidney Disease Education Program (NKDEP) does not endorse the use of the MDRD equation for patients that are not between the ages of 18 and 70, are , have extremes of body size, muscle mass, or nutritional status, or are non- or non-. According to the National Kidney Foundation, irrespective of diagnosis, the stage of the disease is based on the level of kidney function: Stage Description GFR(mL/min/1.73 m(2)) 1 Kidney damage with normal or decreased GFR 90 2 Kidney damage with mild decrease in GFR 60-89 3 Moderate decrease in GFR 30-59 4 Severe decrease in GFR 15-29 5 Kidney failure <15 (or dialysis) 46 Desirable <150 Borderline high 150-199 High 200-499 Very High >500 47 Desirable <200 Borderline high 200-239 High >239 48 Low <40 Desirable: 40-60 High: >60 49 Unable to calculate LDL as triglyceride is > 400 50 Microalbuminuria in a random sample is defined as: Microalbumin/Creatinine ratio of 30-299 ug/mg. Procedures Date Code Description Status 06/30/2014 17293 Polysomnography Sleep Staging 4+ Parameters Completed 11/01/2013 59459 EKG Tracing & Interpretation Completed 08/26/2013 [id number] Diabetic Retinal Eye Exam Completed 08/14/2013 [id number] Diabetic Retinal Eye Exam Completed 08/09/2011 31634 ECHO Stress Test Incl Perf Contiuous ekg Monitoring Completed W/Phys Superv Encounters Type Date Location Provider Dx Diagnosis Office Visit 01/23/2018 [facility] Internal Miguel Angel Rodas NP J02.9 Acute pharyngitis, 1:40p Medicine - unspecified [place] R13.10 Dysphagia, unspecified Z23 Encounter for immunization R22.1 Localized swelling, mass and lump, neck Office Visit 09/16/2017 9:00a Orthopedic Amber Powers, M75.41 Impingement Services Of [place] syndrome of right C.M.A. shoulder Office Visit 09/09/2017 9:00a [facility] Major Aquino M25.511 Pain in right Zurdo Pérez M.D. shoulder [place] Z98.84 Bariatric surgery status Office Visit 10/12/2016 9:00a [facility] Internal Hans Aquino F34.1 Dysthymic disorder [place] Office Visit 09/09/2016 11:40a [facility] Major Aquino F34.1 Dysthymic disorder [place] Office Visit 05/25/2016 2:20p [facility] Internal Humphrey E11.65 Type 2 diabetes Medicine - [place], mellitus with Rd Tao hyperglycemia E78.2 Mixed hyperlipidemia M79.652 Pain in left thigh Office Visit 02/06/2016 [facility] Major Aquino R59.9 Enlarged lymph 9:00a Zurdo Pérez M.D. nodes, unspecified [place] Office Visit 10/07/2015 [facility] Internal Hans Aquino R21 Rash and other 4:20p Zurdo Pérez M.D. nonspecific skin [place] eruption Office Visit 04/28/2015 [facility] Internal Hans Aquino E11.65 Type 2 diabetes 1:00p Zurdo Pérez M.D. mellitus with [place] hyperglycemia Office Visit 07/18/2014 Pulmonology And Jay SK. 327.23 Obstructive Sleep 3:15p Sleep Services Of [place] Paz Apnea Adult & [facility] Pediatric 278.01 Obesity Morbid V85.42 Body Mass Index 45.0-49.9, Adult Office Visit 05/10/2014 8:00a [facility] Internal Humphrey Mckeon, 250.02 Diabetes Medicine - Tao Mellitus W/O [place] Compl Type II Or Unspec Type Uncontrol 110.3 Dermatophytosis Groin & Perianal Area 272.4 Hyperlipidemia Other Unspec 278.01 Obesity Morbid 401.9 Hypertension Unspec Office Visit 05/02/2014 1:30p Pulmonology And Jay SK. 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 Quadrant 724.5 Backache Unspec 250.02 Diabetes Mellitus W/O Compl Type II Or Unspec Type Uncontrol Office Visit 12/19/2013 8:30a [facility] Internal Aubree Reddy, 388.70 Otalgia & Medicine - [employer] WORKER Earache Unspec [place] 995.3 Allergy Unspec v04.81 Need For Prophylactic Vaccination & Inoculation/Influenza Office Visit 12/11/2013 4:20p [facility] Internal Kim Desir, 791.0 Proteinuria Medicine - M.Otilia [place] 250.00 Diabetes Mellitus W/O Compl Type II Or Unspec Controlled 278.01 Obesity Morbid 272.4 Hyperlipidemia Other Unspec Office Visit 11/01/2013 4:00p [facility] Internal Kim Desir, 250.00 Diabetes Mellitus Medicine - MEllis W/O Compl Type II [place] Or Unspec Controlled 278.01 Obesity Morbid 272.4 Hyperlipidemia Other Unspec V72.84 Examination Preoperative Unspec Office Visit 08/21/2013 3:40p [facility] Internal Kim 272.4 Hyperlipidemia Other Medicine - [place] Desir Unspec [place] 250.00 Diabetes Mellitus W/O Compl Type II Or Unspec Controlled 791.0 Proteinuria V76.2 Screening Malignant Neoplasm Cervix Office Visit 07/31/2013 2:00p [facility] Internal Kim Desir, 250.00 Diabetes Mellitus Zurdo Whittaker M.D. W/O Compl Type II [place] Or Unspec Controlled 278.01 Obesity Morbid 272.4 Hyperlipidemia Other Unspec Plan of Treatment Future Appointment(s):04/18/2018 8:00 am - Gopal Alston MD at [facility]03/17/2018 - Gopal Alston, MDM84.375A Stress fracture, left foot, initial encounter for fractureFollow up:Follow Up: 1 month
[2018-03-26 08:36] VITALS: BP 153/76
[2018-03-26] MEDS ORDERED: Albuterol 2.5 MG/3 ML NEB.SOL* (0.083%) INH ONE (08:43)
[2018-03-26] MEDS ORDERED: predniSONE TAB* 20 MG PO ONE (08:43)
--- NOTE | 2018-03-26 08:44 | UC ---
UC General HPI - HPI Summary HPI Summary: 6 day hx worsening cough, congestion and sob. using mdi with little relief. hx asthma. began as a uri that moved into chest. - History of Current Complaint Chief Complaint: UCRespiratory Stated Complaint: COUGH,CONGESTION Time Seen by Provider: 03/26/18 08:35 Hx Obtained From: Patient Hx Last Menstrual Period: 03/03/18 Onset/Duration: Gradual Onset Timing: Constant Pain Intensity: 0 Associated Signs & Symptoms: Positive: Cough, SOB, Wheezing. Negative: Chest Pain, Fever - Allergy/Home Medications Allergies/Adverse Reactions: Allergies Allergy/AdvReac Type Severity Reaction Status Date / Time azithromycin Allergy Nausea And Verified 03/26/18 08:37 Vomiting erythromycin base Allergy Nausea And Verified 03/26/18 08:37 Vomiting PMH/Surg Hx/FS Hx/Imm Hx Respiratory History: Asthma - Surgical History Surgical History: Yes Surgery Procedure, Year, and Place: ear tubes. bariatric Surgery - Family History Known Family History: Positive: Diabetes - Social History Occupation: Employed Full-time Alcohol Use: None Substance Use Type: None Smoking Status (MU): Never Smoked Tobacco - Immunization History Most Recent Influenza Vaccination: not this season Vaccination Up to Date: Yes Review of Systems All Other Systems Reviewed And Are Negative: Yes Constitutional: Positive: Negative Skin: Positive: Negative Eyes: Positive: Negative ENT: Positive: Negative Respiratory: Positive: Shortness Of Breath, Cough Cardiovascular: Positive: Negative Gastrointestinal: Positive: Negative Genitourinary: Positive: Negative Motor: Positive: Negative Neurovascular: Positive: Negative Musculoskeletal: Positive: Negative Neurological: Positive: Negative Psychological: Positive: Negative Physical Exam Triage Information Reviewed: Yes Appearance: Well-Appearing Vital Signs: Initial Vital Signs Temp 98.0 F 03/26/18 08:34 Pulse 88 03/26/18 08:34 Resp 20 03/26/18 08:34 BP 153/76 03/26/18 08:34 Pulse Ox 100 03/26/18 08:34 Vital Signs Reviewed: Yes Eyes: Positive: Conjunctiva Clear ENT: Positive: Pharynx normal, TMs normal. Negative: Nasal congestion, Nasal drainage Neck: Positive: Supple, Nontender, No Lymphadenopathy Respiratory: Positive: No respiratory distress, Decreased breath sounds, Other: - Frequent NPC Cardiovascular: Positive: RRR, No Murmur Abdomen Description: Positive: Nontender, No Organomegaly, Soft Bowel Sounds: Positive: Present Musculoskeletal: Positive: ROM Intact Neurological: Positive: Alert Psychological: Positive: Age Appropriate Behavior Skin Exam: Normal Diagnostics - Radiology No standard instances Radiology Interpretation Completed By: Radiologist - cxr=No radiographic evidence of acute cardiopulmonary disease. Re-Evaluation - Re-Evaluation First Eval Re-Evaluation Time: 09:07 Change: Improved - MUCH BETTER AERATION, LESS COUGH AND PT FEELS BETTER. Course/Dx - Course Course Of Treatment: No hx HTN, BP illness related. - Differential Dx - Multi-Symptom Differential Diagnoses: Other - ASTHMA, PNEUMONIA, BRONCHITIS - Diagnoses Provider Diagnosis: Asthma exacerbation Discharge - Sign-Out/Discharge Documenting (check all that apply): Patient Departure All imaging exams completed and their final reports reviewed: Yes - Discharge Plan Condition: Stable Disposition: HOME Prescriptions: Albuterol HFA INHALER* [Ventolin HFA Inhaler*] 2 puff INH Q6H #1 mdi DOXYcycline CAP(*) [DOXYcycline 100MG CAP(*)] 100 mg PO BID 7 Days #14 cap predniSONE [Deltasone 20 MG TAB] 40 mg PO DAILY 4 Days #8 tablet Patient Education Materials: Asthma (DC) Forms: *Work Release Referrals: Humphrey Mckeon MD [Primary Care Provider] - 5 Days - Billing Disposition and Condition Condition: STABLE Disposition: Home
== END 2018-03-26 09:17 | disposition home or self-care (01) ==
LOC: UCCORT 08:24
DX: J45.901 Unspecified asthma with (acute) exacerbation (principal); Z88.4 Allergy status to anesthetic agent
CPT/HCPCS: 71046; 99212; G0463; J7512

== ENCOUNTER 2018-10-30 17:17 | Emergency (ER) | payer SELFPAY ==
--- NOTE | 2018-10-30 17:42 | UC ---
Throat Pain/Nasal Naun HPI - HPI Summary HPI Summary: 38 yo female presents with sinus pain/pressure/congestion, sore throat, and dry cough for the last month. She initially took mucinex and OTC cold medicine in addition to her albuterol inhaler with good relief and thought she was getting better. Over the last 1.5 weeks, however, she has been feeling her symptoms return "with a vengeance". She is continuing to use her inhaler, but states she is getting low. She does feel short of breath intermittently, but states she does not feel she is at the point where she needs a nebulizer treatment as she has a long history of asthma and is familiar with these. She has not taken her temperature, but has felt feverish. Denies productive cough, chest pain, rash, abdominal pain, n/v. - History of Current Complaint Stated Complaint: SINUSES Time Seen by Provider: 10/30/18 17:41 Hx Obtained From: Patient Hx Last Menstrual Period: 03/03/18 Onset/Duration: Gradual Onset Severity: Moderate Pain Intensity: 6 Pain Scale Used: 0-10 Numeric Cough: Nonproductive - Allergies/Home Medications Allergies/Adverse Reactions: Allergies Allergy/AdvReac Type Severity Reaction Status Date / Time azithromycin Allergy Nausea And Verified 10/30/18 17:43 Vomiting erythromycin base Allergy Nausea And Verified 10/30/18 17:43 Vomiting Home Medications: Home Medications guaiFENesin ER TAB [Mucinex*] 600 mg PO BID 10/30/18 [History Confirmed 10/30/18 ] PMH/Surg Hx/FS Hx/Imm Hx Respiratory History: Asthma - Surgical History Surgical History: Yes Surgery Procedure, Year, and Place: ear tubes. bariatric Surgery - Family History Known Family History: Positive: Diabetes - Social History Occupation: Employed Full-time Lives: With Family Alcohol Use: None Substance Use Type: None Smoking Status (MU): Never Smoked Tobacco - Immunization History Most Recent Influenza Vaccination: not this season Vaccination Up to Date: Yes Review of Systems All Other Systems Reviewed And Are Negative: Yes Constitutional: Positive: Negative Skin: Positive: Negative Eyes: Positive: Negative ENT: Positive: Nasal Discharge, Sinus Congestion, Sinus Pain/Tenderness Respiratory: Positive: Cough Cardiovascular: Positive: Negative Gastrointestinal: Positive: Negative Neurovascular: Positive: Negative Neurological: Positive: Negative Psychological: Positive: Negative Physical Exam - Summary Physical Exam Summary: GENERAL: NAD. WDWN. No pain distress. SKIN: No rashes, sores, lesions, or open wounds. HEENT: Head: AT/NC Eyes: EOM intact. Conjunctiva clear without inflammation or discharge. Ears: Hearing grossly normal. TMs intact, no bulging, erythema, or edema. Nose: Nasal mucosa mildly swollen and erythematous without discharge. TTP maxillary and frontal sinus. Positive post nasal drip Throat: Posterior oropharynx without exudates, erythema, or tonsillar enlargement. Uvula midline. NECK: Supple. Nontender. No lymphadenopathy. CHEST: Scattered wheezes throughout. No accessory muscle use. Breathing comfortably and in no distress. CV: RRR. Without m/r/g. Pulses intact. NEURO: Alert. PSYCH: Age appropriate behavior. Triage Information Reviewed: Yes Vital Signs: Vital Signs: Temp Pulse Resp BP Pulse Ox 100.4 F 66 16 124/60 100 10/30/18 17:39 10/30/18 17:39 10/30/18 17:39 10/30/18 17:39 10/30/18 17:39 Vital Signs Reviewed: Yes Throat Pain/Nasal Course/Dx - Course Course Of Treatment: Sinusitis. Asthma exacerbation. - Differential Dx/Diagnosis Provider Diagnosis: Sinusitis, Asthma exacerbation Discharge - Sign-Out/Discharge Documenting (check all that apply): Patient Departure All imaging exams completed and their final reports reviewed: No Studies - Discharge Plan Condition: Stable Disposition: HOME Prescriptions: Albuterol HFA INHALER* [Ventolin HFA Inhaler*] 1 puff INH Q6H PRN #1 mdi PRN Reason: Wheezing Amoxicillin/Clavulanate TAB* [Augmentin TAB 875*] 875 mg PO BID #14 tab predniSONE TAB* [Deltasone 20 MG TAB*] 40 mg PO DAILY #10 tab Patient Education Materials: Sinusitis (ED) Referrals: No Primary Care Phys,NOPCP [Primary Care Provider] - Additional Instructions: If you develop a fever, shortness of breath, chest pain, new or worsening symptoms - please call your PCP or go to the ED immediately. Continue taking mucinex and tylenol/ibuprofen as directed for discomfort or fever - Billing Disposition and Condition Condition: STABLE Disposition: Home - Attestation Statements Provider Attestation: Per institutional requirements, I have reviewed the chart, however, I was not consulted specifically or made aware of this patient by the midlevel provider. I did not personally evaluate, interact with , or disposition this patient.
[2018-10-30 17:43] VITALS: BP 124/60
== END 2018-10-30 18:05 | disposition home or self-care (01) ==
LOC: UCCORT 17:17
DX: J45.901 Unspecified asthma with (acute) exacerbation (principal)
CPT/HCPCS: 99212; G0463

== ENCOUNTER 2019-06-16 07:29 | Emergency (ER) | payer BC ==
--- OUTSIDE RECORDS SUMMARY | 2019-06-16 07:45 | XMS REPORT | Continuity of Care Document ---
:1980 External Reference #:[id number] Author Name Asha Boo, BILLING AND INSURANCE COORDINATOR Address [address] [place] [address] Care Team Providers Name Role Phone Laila Thompson PA - Physician Program Schedule Clerk Care Team Information [place] Problems Active Problems Provider Date Malaise and fatigue Nahomi Wright DO Onset: 03/29/2019 Bariatric surgery status Nahomi Wright DO Onset: 03/29/2019 Anemia Nahomi Wright DO Onset: 03/29/2019 Social History Type Date Description Comments Sex Unknown Allergies, Adverse Reactions, Alerts Active Allergies Reaction Severity Comments Date Zithromax hives and GI 03/29/2019 Erythromycin hives and GI 03/29/2019 Medications Active Medications SIG Qnty Indications Ordering Date Provider Ergocalciferol 1 cap by mouth 8caps Kyle 05/17/2019 1.25mg every week DO Nahomi ([address] [address]) Capsules Sertraline HCL 1 by mouth every Unknown 50mg Tablets day Ventolin HFA take 2 puffs Unknown 108(90Base) every 6 hours as mcg/Act Aerosol needed for shortness of breath. History Medications Methylprednisolone take by mouth as 21units Kyle 04/20/2019 - 4mg TBPK directed DO Nahomi 05/07/2019 Immunizations Description No Information Available Vital Signs Date Vital Result Comment 05/17/2019 7:58am BP Systolic 155 mmHg left BP Diastolic 74 mmHg left Body Temperature 97.5 F Heart Rate 89 /min Respiratory Rate 16 /min Weight 277.25 lb Pain Level 0 O2 % BldC Oximetry 98 % Ra 04/20/2019 12:21pm BP Systolic 132 mmHg BP Diastolic 75 mmHg Body Temperature 99.1 F Heart Rate 71 /min Respiratory Rate 18 /min Results Test Acquired Date Facility Test Result H/L Range Note RBC Morphology 05/17/2019 [facility] Hypochromia 1+ Normal [address] [place] [address] [phone] Poikilocytosis 0-1+ Normal Anisocytosis 2+ Normal Microcytosis 2+ Normal Michelet Cells 0-1+ Normal Comment MORPH ADDED Normal Slide Review 05/17/2019 [facility] Slide Review (SEE NOTE) 2 [address] [place], [place] [id number] [phone] Systemic Lupus 05/17/2019 [facility] Ra Latex <10.0 IU/mL 0.0-13.9 Erythem. Profil [address] [place] [address] [phone] Anti-Dna Antibody ([place]) <1 IU/mL 0-9 3 SM Antibody <0.2 AI 0.0-0.9 TAX STAFF ACCOUNTANT Antibody <0.2 AI 0.0-0.9 Sjogrens Antibodies (Ssa) <0.2 AI 0.0-0.9 Antichromatin Antibodies <0.2 AI 0.0-0.9 Sjogrens Antibodies (SSB) <0.2 AI 0.0-0.9 Lyme AB/Western 05/17/2019 [facility] Lyme Total < 0.91 ISR 0.00-0.90 4 Blot Reflex [address] [facility] [facility] [address] [phone] Lyme Disease Antibody,QT,Igm < 0.80 index 0.00-0.79 5 Rheumatoid 05/17/2019 [facility] Sedimentation 16 mm/hr Normal 2-40 6 Panel ([facility]) [address] [place] [address] [phone] Uric Acid 6.7 mg/dL High 2.6-6.0 Rheumatoid Factor Screen < 10.0 IU/mL < 15.0 C-Reactive Protein,Quant 9.3 mg/L High <3.0 Antinuclear Antibodies, Ifa Negative . 7 Laboratory test 05/17/2019 [facility] Ebv Early <9.0 U/mL 0.0-8.[address] Antigen AB, [place] [address] [phone] Immunoglobulin E,Total 84 IU/mL 6-495 Ebv Acute 05/17/2019 [facility] Ebv AB Vca,Igm <36.0 U/mL 0.0-35.9 [address] [place] [address] [phone] Ebv AB Vca,Igg >600.0 U/mL High 0.0-17.9 10 Ebv Nuclear Antigen AB, Igg <18.0 U/mL 0.0-17.9 11 Ebv Interpretation . 12 WB Ebv PCR 05/17/2019 [facility] Ebv PCR 173 copies/m Negative [address] Quant([place] [address] Blood) [phone] log10 Ebv Dna Qn PCR 2.238 [id number] . 14 Laboratory test 05/17/2019 [facility] LDH 160 U/L Normal 84-246 finding [address] [place] [address] [phone] Reticulocyte 05/17/2019 [facility] Retic 21.7 pg Low 27.9-37.0 Count,Automated [address] [facility] [place] [address] [phone] Retic % 0.7 % Normal 0.5-1.8 Absolute Retic 39 K/uL Normal 24-84 Immature Retic Fraction 14.4 % Normal 2.9-15.5 Laboratory 05/17/2019 [facility] Vitamin 11.9 Low 30.0-100.0 15 test finding [address] D,25-Hydroxy ng/[place] [address] [phone] Vitamin B12 05/17/2019 [facility] Vitamin B12 629 Normal 193-9[address] pg/[place] [address] [phone] Folic Acid 18.7 ng/mL High 3.1-17.5 Laboratory test 05/17/2019 [facility] Ferritin 22 ng/mL Normal 8-252 finding [address] [place] [address] [phone] Iron-Tibc-%Sat 05/17/2019 [facility] Serum Iron 20 g/dL Low 50-[address] [place] [address] [phone] Total Iron Binding Capacity 423 g/dL Normal 250-450 Transferrin %Saturation 5 % Low 12-57 Comprehensive Metabolic 05/17/2019 [facility] Glucose 181 mg/dL High 74-106 Panel [address] [place] [address] [phone] BUN 9 mg/dL Normal 7-18 Creatinine 0.7 mg/dL Normal 0.6-1.3 Glom Filtration Rate, Estimate >60 mL/min >60 If >60 mL/min >60 16 BUN/Creat 12.8 ratio Sodium 137 mmol/L Normal 136-145 Potassium 4.1 mmol/L Normal 3.5-5.1 Chloride 107 mmol/L Normal 98-107 Carbon Dioxide 26 mmol/L Normal 21-32 Anion Gap 4 mEq/L Low 8-16 Calcium 8.7 mg/dL Normal 8.5-10.1 Total Protein 7.5 g/dL Normal 6.4-8.2 Albumin 3.4 g/dL Normal 3.4-5.0 Globulin 4.1 g/dL Normal 1.9-4.3 Alb/Glob 0.8 ratio Bilirubin,Total 0.3 mg/dL Normal 0.2-1.0 Sgot/Ast 18 U/L Normal 15-37 SGPT/Alt 32 U/L Normal 12-78 Alkaline Phosphatase 70 U/L Normal 45-117 CBC W/Automated 05/17/2019 [facility] White Blood 7.3 K/uL Normal 3.1-10.7 Diff [address] [place] [address] [phone] Red Blood Count 5.54 M/uL High 3.90-5.40 Hemoglobin 9.9 gm/dL Low 11.6-15.8 Hematocrit 35.7 % Low 36.0-46.1 Mean Cell Volume 64.4 fl Low 80.9-99.0 Mean Corpuscular HGB 17.9 pg Low 25.9-32.7 Mean Corpuscular HGB Conc 27.7 g/dL Low 30.8-34.3 Platelet Count 448 K/uL High 155-360 Red Cell Distri Width SD 57.1 fl High 36-47 Red Cell Distri Width %CV 26.2 % High 11.7-14.4 Mean Platelet Volume 9.7 fl Normal 8.9-12.4 Neut% 65.9 % Normal 40.4-72.8 Lymph % 22.8 % Normal 20.0-42.0 [place] % 7.7 % Normal 4.3-13.2 Eo% 2.5 % Normal 0.0-6.6 Bas% 0.8 % Normal 0.0-1.1 Immature Grans 0.3 % Normal 0.0-5.0 NRBC % 0.0 /100WBC < 10/ 100 WBC Neut# 4.79 K/uL Normal 1.8-7.0 Lymph # 1.66 K/uL Normal 1.0-4.0 [place] # 0.56 K/uL Normal 0.3-0.9 Eos # 0.18 K/uL Normal 0.0-0.5 Baso # 0.06 K/uL Normal 0.0-0.1 Immature Grans Absolute 0.02 K/uL NRBC # 0.00 K/uL Laboratory test 04/20/2019 [facility] Complement, < 10 Low [id number] 17, finding [address] Total (CH50) U/mL 18 [place] [address] [phone] Immunoglobulins 04/20/2019 [facility] Immunoglobulin [phone] A/G/M, QN, Ser [address] G,Quant,Serum mg/[place] [address] [phone] Immunoglobulin A 322 mg/dL 87-352 Immunoglobulin M 266 mg/dL High 26-217 Laboratory test 04/20/2019 [facility] Immunoglobulin 77 IU/mL 6-[address] E,[place] [address] [phone] Histamine (B) 83 ng/mL 12-127 19 Serotonin,Serum 10 ng/mL 0-420 20 LDH 155 U/L Normal 84-246 RBC Morphology Only 04/17/2019 [facility] Hypochromia 1+ [address] [place] [address] [phone] Poikilocytosis 1+ Anisocytosis 1+ Microcytosis 1+ Spherocyte 0-1+ Schistocytes 0-1+ Target Cells 0-1+ Laboratory test 04/17/2019 [facility] Path <pending> finding [address] Review: [place] [address] [phone] Slide Review 04/17/2019 [facility] Slide . [address] [place] [address] [phone] Iron-Tibc-%Sat 04/17/2019 [facility] Serum Iron 13 g/dL Critical low 50-[address] [place] [address] [phone] Total Iron Binding Capacity 485 g/dL High 250-450 Transferrin %Saturation 3 % Low 12-57 Laboratory test 04/17/2019 [facility] Ferritin 15 ng/mL Normal 8-252 finding [address] [place] [address] [phone] Comprehensive 04/17/2019 [facility] Glucose 97 mg/dL Normal 74-106 Metabolic Panel [address] [place] [address] [phone] BUN 13 mg/dL Normal 7-18 Creatinine 0.6 mg/dL Normal 0.6-1.3 Glom Filtration Rate, Estimate >60 mL/min >60 If >60 mL/min >60 23 BUN/Creat 21.6 ratio Sodium 137 mmol/L Normal 136-145 Potassium 4.3 mmol/L Normal 3.5-5.1 Chloride 106 mmol/L Normal 98-107 Carbon Dioxide 25 mmol/L Normal 21-32 Anion Gap 6 mEq/L Low 8-16 Calcium 9.2 mg/dL Normal 8.5-10.1 Total Protein 7.9 g/dL Normal 6.4-8.2 Albumin 3.5 g/dL Normal 3.4-5.0 Globulin 4.4 g/dL High 1.9-4.3 Alb/Glob 0.8 ratio Bilirubin,Total 0.2 mg/dL Normal 0.2-1.0 Sgot/Ast 23 U/L Normal 15-37 SGPT/Alt 29 U/L Normal 12-78 Alkaline Phosphatase 69 U/L Normal 45-117 CBC W/Automated 04/17/2019 [facility] White Blood 7.7 K/uL Normal 3.1-10.[address] [place] [address] [phone] Red Blood Count 5.45 M/uL High 3.90-5.40 Hemoglobin 8.8 gm/dL Low 11.6-15.8 Hematocrit 33.2 % Low 36.0-46.1 Mean Cell Volume 60.9 fl Low 80.9-99.0 Mean Corpuscular HGB 16.1 pg Low 25.9-32.7 Mean Corpuscular HGB Conc 26.5 g/dL Low 30.8-34.3 Platelet Count 519 K/uL High 155-360 Red Cell Distri Width SD 44.3 fl Normal 36-47 Red Cell Distri Width %CV 22.0 % High 11.7-14.4 Mean Platelet Volume 9.5 fl Normal 8.9-12.4 Neut% 59.8 % Normal 40.4-72.8 Lymph % 28.7 % Normal 20.0-42.0 [place] % 7.3 % Normal 4.3-13.2 Eo% 2.9 % Normal 0.0-6.6 Bas% 0.9 % Normal 0.0-1.1 Immature Grans 0.4 % Normal 0.0-5.0 NRBC % 0.0 /100WBC < 10/ 100 WBC Neut# 4.62 K/uL Normal 1.8-7.0 Lymph # 2.21 K/uL Normal 1.0-4.0 [place] # 0.56 K/uL Normal 0.3-0.9 Eos # 0.22 K/uL Normal 0.0-0.5 Baso # 0.07 K/uL Normal 0.0-0.1 Immature Grans Absolute 0.03 K/uL NRBC # 0.00 K/uL Laboratory test 03/29/2019 [facility] Path Review: <pending> [address] [place] [address] [phone] Differential-WBC 03/29/2019 [facility] Total Cells 100 #CELLS Confirm [address] [place] [address] [phone] Band% 1 % Normal 0-8 Neutrophils% 64 % Normal 33-73 Lymph% 22 % Normal 20-42 Monocyte% 6 % Normal 0-10 Eosinophil% 7 % High 0-5 Platelet Estimate SLIGHT INCREASE Hypochromia 0-1+ Poikilocytosis 2+ Microcytosis 2+ Michelet Cells 0-1+ Acanthocytes 0-1+ Path Review: 03/29/2019 [facility] Path Review: INDICATED,SLIDE [address] <SEE NOTE> [place] [address] [phone] Slide Review 03/29/2019 [facility] Slide Review DIFF ORDERED [address] [place] [address] [phone] Immunoglobulins 03/29/2019 [facility] Immunoglobulin 1045 mg/dL 70 A/G/M, QN, Ser [address] G,Quant,Serum 0- [place] [address] 16 [phone] Immunoglobulin A 333 mg/dL 87-352 Immunoglobulin M 285 mg/dL High 26-217 26 Laboratory test 03/29/2019 [facility] LDH 152 U/L Normal 84-[address] [place] [address] [phone] Reticulocyte 03/29/2019 [facility] Retic 17.7 pg Low 27.9-37.0 Count,Automated [address] [place] [address] [phone] Retic % 1.3 % Normal 0.5-1.8 Absolute Retic 69 K/uL Normal 24-84 Immature Retic Fraction 21.2 % High 2.9-15.5 Laboratory 03/29/2019 [facility] Vitamin 11.4 Low 30.0-100.0 27 test finding [address] D,25-Hydroxy ng/[place] [address] [phone] Vitamin B12 03/29/2019 [facility] Vitamin B12 619 Normal 193-986 And Folate [address] pg/[place] [address] [phone] Folic Acid 16.8 ng/mL Normal 3.1-17.5 Laboratory test 03/29/2019 [facility] Ferritin 3 ng/mL Low 8-[address] [place] [address] [phone] Iron-Tibc-%Sat 03/29/2019 [facility] Serum Iron 12 g/dL Critical low 50-[address] [place] [address] [phone] Total Iron Binding Capacity 509 g/dL High 250-450 Transferrin %Saturation 2 % Low 12-57 Comprehensive 03/29/2019 [facility] Glucose 104 mg/dL Normal 74-106 Metabolic Panel [address] [place] [address] [phone] BUN 11 mg/dL Normal 7-18 Creatinine 0.6 mg/dL Normal 0.6-1.3 Glom Filtration Rate, Estimate >60 mL/min >60 If >60 mL/min >60 28 BUN/Creat 18.3 ratio Sodium 137 mmol/L Normal 136-145 Potassium 3.9 mmol/L Normal 3.5-5.1 Chloride 103 mmol/L Normal 98-107 Carbon Dioxide 25 mmol/L Normal 21-32 Anion Gap 9 mEq/L Normal 8-16 Calcium 9.1 mg/dL Normal 8.5-10.1 Total Protein 7.8 g/dL Normal 6.4-8.2 Albumin 3.6 g/dL Normal 3.4-5.0 Globulin 4.2 g/dL Normal 1.9-4.3 Alb/Glob 0.9 ratio Bilirubin,Total 0.3 mg/dL Normal 0.2-1.0 Sgot/Ast 19 U/L Normal 15-37 SGPT/Alt 29 U/L Normal 12-78 Alkaline Phosphatase 80 U/L Normal 45-117 CBC W/Automated 03/29/2019 [facility] White Blood 8.9 K/uL Normal 3.1-10.[address] Diff [address] [place] [address] [phone] Red Blood Count 5.23 M/uL Normal 3.90-5.40 Hemoglobin 8.4 gm/dL Low 11.6-15.8 Hematocrit 31.2 % Low 36.0-46.1 Mean Cell Volume 59.7 fl Low 80.9-99.0 Mean Corpuscular HGB 16.1 pg Low 25.9-32.7 Mean Corpuscular HGB Conc 26.9 g/dL Low 30.8-34.3 Platelet Count 435 K/uL High 155-360 Red Cell Distri Width SD 40.6 fl Normal 36-47 Red Cell Distri Width %CV 20.2 % High 11.7-14.4 Mean Platelet Volume 9.8 fl Normal 8.9-12.4 Neut% 61.7 % Normal 40.4-72.8 Lymph % 26.9 % Normal 20.0-42.0 [place] % 7.2 % Normal 4.3-13.2 Eo% 3.1 % Normal 0.0-6.6 Bas% 0.9 % Normal 0.0-1.1 Immature Grans 0.2 % Normal 0.0-5.0 NRBC % 0.0 /100WBC < 10/ 100 WBC Neut# 5.48 K/uL Normal 1.8-7.0 Lymph # 2.39 K/uL Normal 1.0-4.0 [place] # 0.64 K/uL Normal 0.3-0.9 Eos # 0.28 K/uL Normal 0.0-0.5 Baso # 0.08 K/uL Normal 0.0-0.1 Immature Grans Absolute 0.02 K/uL NRBC # 0.00 K/uL Hemoglobinopathy Profile 03/29/2019 [facility] Hgb A 98.8 % 96.4-98.8 [address] [place] [id number] [phone] Hgb, 0.0 % 0.0-2.0 Hgb S 0.0 % 0.0 Hgb C 0.0 % 0.0 Hgb A2 1.2 % Low 1.8-3.2 Hgb Variant 0 % 0.0 Interpretation: (SEE NOTE) 29 1 T50.905A D50.9 D64.9 R53.83 2 Instrument flagged sample for slide review. Less than 10% Bands seen, no other immature WBC's seen. Platelet estimate = SLIGHT INCREASE 3 Negative <5 Equivocal 5 - 9 Positive >9 4 Negative <0.91 Equivocal 0.91 - 1.09 Positive >1.09 5 Negative <0.80 Equivocal 0.80 - 1.19 Positive >1.19 IgM levels may peak at 3-6 weeks post infection, then gradually decline. Performed at: - [facility] [address] [id number] Design Drafter Chief: Tamara Abreu MD, Phone: [phone] Performed at: - [facility] [address] [id number] Design Drafter Chief: Seymour Bowling MD, Phone: [phone] 6 This result was obtained with an ESR method that is not based on the standard Westergren Method. When comparing results obtained from the traditional Westergren ESR and this method it is important to refer to the reference range for each method. Method: Capillary Photometry 7 Negative <1:80 Borderline 1:80 Positive >1:80 8 Negative < 9.0 Equivocal 9.0 - 10.9 Positive >10.9 9 Negative <36.0 Equivocal 36.0 - 43.9 Positive >43.9 10 Negative <18.0 Equivocal 18.0 - 21.9 Positive >21.9 11 Negative <18.0 Equivocal 18.0 - 21.9 Positive >21.9 12 EBV Interpretation Chart Mendez: Antibody Present + Antibody Absent - Interpretation VCA-IgM VCA-IgG EBNA-IgG No previous infection/ - - - Susceptible Primary infection (new + + - or recent) Past Infection +or- + + See comment below* + - - *Results indicate infection with EBV at some time however cannot predict the timing of the infection since antibodies to EBNA usually develop after primary infection or, alternatively, approximately 5-10% of patients with EBV never develop antibodies to EBNA. 13 INFCE Result Units: copies/mL The quantitative range of this assay is 100 to 1 million copies/mL. This test was developed and its performance characteristics determined by [employer]. It has not been cleared or approved by the Food and Drug Administration. The FDA has determined that such clearance or approval is not necessary. 14 INFCE Result Units: xcw75zero/mL 15 Vitamin D deficiency has been defined by the [place] of [place] and an Endocrine Society practice guideline as a level of serum 25-OH vitamin D less than 20 ng/mL (1,2). The Endocrine Society went on to further define vitamin D insufficiency as a level between 21 and 29 ng/mL (2). 1. IOM ([place]). 2010. Dietary reference intakes for calcium and D. [place]: The National Academies Press. 2. Shayy MF, Larry NC, Kartik CEE, et al. Evaluation, treatment, and prevention of vitamin D deficiency: an Endocrine Society clinical practice guideline. JCEM. 2010; 96(7):1911-30. Performed at: - [facility] [id number] Design Drafter Chief: Tamara Abreu MD, Phone: [phone] 16 Note: Persistent reduction for 3 months or more in an eGFR <60 mL/min/1.73 m2 defines CKD. Patients with eGFR values >/=60 mL/min/1.73 m2 may also have CKD if evidence of persistent proteinuria is present. The original MDRD equation for estimated GFR is not valid for patients less than 18 years of age. Additional information may be found at www.kdoqi.org. 17 D64.9 Z98.84 R53.83 T88.7XXA 18 Performed at: [address] [id number] Design Drafter Chief: Tamara Abreu MD, Phone: [phone] 19 Results for this test are for research purposes only by the assay's pt skilled. The performance characteristics of this product have not been established. Results should not be used as a diagnostic procedure without confirmation of the diagnosis by another medically established diagnostic product or procedure. 20 Performed at: [address] [id number] Design Drafter Chief: Tamara Abreu MD, Phone: [phone] Performed at: [address] [id number] Design Drafter Chief: Seymour Bowling MD, Phone: [phone] 21 D64.9 Z98.84 R53.83 D50.9 22 Instrument flagged sample for slide review. Less than 10% Bands seen, no other immature WBC's seen. Platelet estimate = MODERATELY INCREASED 23 Note: Persistent reduction for 3 months or more in an eGFR <60 mL/min/1.73 m2 defines CKD. Patients with eGFR values >/=60 mL/min/1.73 m2 may also have CKD if evidence of persistent proteinuria is present. The original MDRD equation for estimated GFR is not valid for patients less than 18 years of age. Additional information may be found at www.kdoqi.org. 24 R64.9 R53.83 25 INDICATED,SLIDE SENT Peripheral smear review: Microcytic hypochromatic RBCs without nucleated cells or immaturity. Normal number of platelets without morphological abnormalities. Granulocytes concist mainly of segmented forms and monocytes. No immaturity or blasts. [place] 03-30-19 04/02/19 1049: 26 Performed at: [address] [id number] Design Drafter Chief: Tamara Abreu MD, Phone: [phone] 27 Vitamin D deficiency has been defined by the [place] [employer] [place] and an Endocrine Society practice guideline as a level of serum 25-OH vitamin D less than 20 ng/mL (1,2). The Endocrine Society went on to further define vitamin D insufficiency as a level between 21 and 29 ng/mL (2). 1. IOM ([place]). 2010. Dietary reference intakes for calcium and D. [place]: The National Academies Press. 2. Shayy MF, Larry NC, Kartik CEE, et al. Evaluation, treatment, and prevention of vitamin D deficiency: an Endocrine Society clinical practice guideline. JCEM. 2010; 96(7):1911-30. Performed at: RN - [facility] [address] [id number] Design Drafter Chief: Tamara Abreu MD, Phone: [phone] 28 Note: Persistent reduction for 3 months or more in an eGFR <60 mL/min/1.73 m2 defines CKD. Patients with eGFR values >/=60 mL/min/1.73 m2 may also have CKD if evidence of persistent proteinuria is present. The original MDRD equation for estimated GFR is not valid for patients less than 18 years of age. Additional information may be found at www.kdoqi.org. 29 Normal adult hemoglobin present. Low Hgb A2 may indicate an alpha-thalassemia or iron deficiency. Suggest clinical and hematologic correlation. 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 Office Visit 04/20/2019 Oncology Rajeev T50.906V Adverse effect of 3:30p Office Asha Simons, unsp drug/meds/biol BILLING AND INSURANCE COORDINATOR subst, init D50.9 Iron deficiency anemia, unspecified Office Visit 04/17/2019 8:30a Infusion [facility] [place], D50.9 Iron deficiency Asha B., BILLING AND INSURANCE COORDINATOR anemia, unspecified T50.905A Adverse effect of unsp drug/meds/biol subst, init F06.4 Anxiety disorder due to known physiological condition Office Visit 03/29/2019 3:30p Oncology Office [place] D64.9 Anemia, Nahomi, unspecified Z98.84 Bariatric surgery status R53.83 Other fatigue Assessments Date Code Description Provider 05/17/2019 T50.905A Adverse effect of unspecified drugs, [place], Asha B. , BILLING AND INSURANCE COORDINATOR medicaments and biological substances, initial encounter 05/17/2019 D50.9 Iron deficiency anemia, unspecified [place], Asha B., BILLING AND INSURANCE COORDINATOR 05/17/2019 F06.4 Anxiety disorder due to known Rajeev, Asha B., BILLING AND INSURANCE COORDINATOR physiological condition 04/20/2019 T50.905A Adverse effect of unspecified drugs, [place], Asha B. , BILLING AND INSURANCE COORDINATOR medicaments and biological substances, initial encounter 04/20/2019 D50.9 Iron deficiency anemia, unspecified [place], Asha B., BILLING AND INSURANCE COORDINATOR 04/17/2019 D50.9 Iron deficiency anemia, unspecified Rajeev, Asha B., BILLING AND INSURANCE COORDINATOR 04/17/2019 T50.905A Adverse effect of unspecified drugs, Rajeev, Asha B. , BILLING AND INSURANCE COORDINATOR medicaments and biological substances, initial encounter 04/17/2019 F06.4 Anxiety disorder due to known Rajeev, Asha B., BILLING AND INSURANCE COORDINATOR physiological condition 03/29/2019 D64.9 Anemia, unspecified Nahomi Wright, 03/29/2019 Z98.84 Bariatric surgery status Nahomi Wright, 03/29/2019 R53.83 Other fatigue Nahomi Wright DO Plan of Treatment 05/17/2019 - Rajeev, Asha B., NPT50.905A Adverse effect of unspecified drugs , medicaments and biological substances, initial encounterComments:Patient reports delayed adverse reaction to Ferrlecit as described in HPI. Discussed alternative medication including Injectafer. Patient is agreeable to a medication change.D50.9 Iron deficiency anemia, unspecifiedComments:Iron sucrose was discontinued due to delayed adverse reaction including tongue swelling and facial edema. Patient had possible adverse reaction to Ferrlecit approximately 30 minutes into her first dose. Delayed reaction after her third dose as described in HPI. Discussed Injectafer as a medication alternative.F06.4 Anxiety disorder due to known physiological conditionComments: Patient is quite anxious as she is concerned that she will have adverse reactions to other iron formulations. She began her visit today in a confrontational manner stating that her questions were not previously answered by myself and nursing staff. Spent greater than 60 minutes addressing pt's concerns and answering her and her spouse's questions regarding laboratory studies and plan of care movingforward. Patient's mood did shift from agitated and angry, to tearful and upset, and finally demonstrated a calm affect. Patient and her spouse stated that all questions were answered to their satisfaction. Functional Status Description No Information Available Mental Status Description No Information Available Referrals Description No Information Available
--- OUTSIDE RECORDS SUMMARY | 2019-06-16 07:45 | XMS REPORT | Continuity of Care Document ---
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 Immunizations Description No Information Available Vital Signs Date Vital Result Comment 04/17/2019 8:34am BP Systolic 134 mmHg right BP Diastolic 78 mmHg right Body Temperature 98.4 F Heart Rate 68 /min Respiratory Rate 16 /min Weight 270.50 lb Pain Level 0 O2 % BldC Oximetry 99 % Ra 03/29/2019 3:41pm BP Systolic 147 mmHg BP Diastolic 74 mmHg Body Temperature 98.4 F Heart Rate 72 /min Respiratory Rate 16 /min Weight 278.38 lb Pain Level 0 O2 % BldC Oximetry 100 % Results Test Acquired Date Facility Test Result H/L Range Note Laboratory test 04/20/2019 [facility] Complement, Total <pending> [address] ([address]) [place] [address] [phone] Laboratory test 04/20/2019 [facility] Immunoglobulin <pending> finding [address],[place] [address] [phone] Histamine (B) <pending> Serotonin,Serum <pending> LDH 155 U/L Normal 84-246 RBC Morphology Only 04/17/2019 [facility] Hypochromia 1+ [address] [place] [address] [phone] Poikilocytosis 1+ Anisocytosis 1+ Microcytosis 1+ Spherocyte 0-1+ Schistocytes 0-1+ Target Cells 0-1+ Laboratory test 04/17/2019 [facility] Path <pending> finding [address] Review: [place] [address] [phone] Slide Review 04/17/2019 [facility] Slide . [address] [place] [address] [phone] Iron-Tibc-%Sat 04/17/2019 [facility] Serum Iron 13 g/dL Critical low 50-[address] [place] [address] [phone] Total Iron Binding Capacity 485 g/dL High 250-450 Transferrin %Saturation 3 % Low 12-57 Laboratory test 04/17/2019 [facility] Ferritin 15 ng/mL Normal 8-252 finding [address] [place] [address] [phone] Comprehensive 04/17/2019 [facility] Glucose 97 mg/dL Normal 74-106 Metabolic Panel [address] [place], [place] [id number] [phone] BUN 13 mg/dL Normal 7-18 Creatinine 0.6 mg/dL Normal 0.6-1.3 Glom Filtration Rate, Estimate >60 mL/min >60 If >60 mL/min >60 4 BUN/Creat 21.6 ratio Sodium 137 mmol/L Normal [...] 69 U/L Normal 45-117 CBC W/Automated 04/17/2019 [facility] White Blood 7.7 K/uL Normal 3.1-10.[address] [place] [address] [phone] Red Blood Count 5.45 M/uL High 3.90-5.40 [...] 40.4-72.8 Lymph % 28.7 % Normal 20.0-42.0 Pepin % 7.3 % Normal 4.3-13.2 Eo% 2.9 % Normal 0.0-6.6 Bas% 0.9 % Normal 0.0-1.1 Immature Grans 0.4 % Normal 0.0-5.0 NRBC % 0.0 /100WBC < 10/ 100 WBC Neut# 4.62 K/uL Normal 1.8-7.0 Lymph # 2.21 K/uL Normal 1.0-4.0 Pepin # 0.56 K/uL Normal 0.3-0.9 Eos # 0.22 K/uL Normal 0.0-0.5 Baso # 0.07 K/uL Normal 0.0-0.1 Immature Grans Absolute 0.03 K/uL NRBC # 0.00 K/uL Laboratory test 03/29/2019 [facility] Path Review: <pending> 5 finding [address] [place] [address] [phone] Differential-WBC 03/29/2019 [facility] Total Cells 100 #CELLS Confirm [address] [place] [address] [phone] Band% 1 % Normal 0-8 Neutrophils% 64 % Normal 33-73 Lymph% 22 % Normal 20-42 Monocyte% 6 % Normal 0-10 Eosinophil% 7 % High 0-5 Platelet Estimate SLIGHT INCREASE Hypochromia 0-1+ Poikilocytosis 2+ Microcytosis 2+ Michelet Cells 0-1+ Acanthocytes 0-1+ Path Review: 03/29/2019 [facility] Path Review: INDICATED,SLIDE 6 [address] <SEE NOTE> [place] [address] [phone] Slide Review 03/29/2019 [facility] Slide Review DIFF ORDERED [address] [place] [address] [phone] Immunoglobulins 03/29/2019 [facility] Immunoglobulin 1045 mg/dL 70 A/G/M, QN, Ser [address] G,Quant,Serum 0- [place] [address] 16 [phone] Immunoglobulin A 333 mg/dL 87-352 Immunoglobulin M 285 mg/dL High 26-217 7 Laboratory test 03/29/2019 [facility] LDH 152 U/L Normal 84-[address] [place] [address] [phone] Reticulocyte 03/29/2019 [facility] Retic 17.7 pg Low 27.9-37.0 Count,Automated [address] [place] [address] [phone] Retic % 1.3 % Normal 0.5-1.8 Absolute Retic 69 K/uL Normal 24-84 Immature Retic Fraction 21.2 % High 2.9-15.5 Laboratory 03/29/2019 [facility] Vitamin 11.4 Low 30.0-100.0 8 test finding [address] D,25-Hydroxy ng/[place] [address] [phone] Vitamin B12 03/29/2019 [facility] Vitamin B12 619 Normal 193-9[address]olate [address] pg/[place] [address] [phone] Folic Acid 16.8 ng/mL Normal 3.1-17.5 Laboratory test 03/29/2019 [facility] Ferritin 3 ng/mL Low 8-252 finding [address] [place] [address] [phone] Iron-Tibc-%Sat 03/29/2019 [facility] Serum Iron 12 g/dL Critical low 50-170 [address] [place] [address] [phone] Total Iron Binding Capacity 509 g/dL High 250-450 Transferrin %Saturation 2 % Low 12-57 Comprehensive 03/29/2019 [facility] Glucose 104 mg/dL Normal 74-106 Metabolic Panel [address] [place] [address] [phone] BUN 11 mg/dL Normal 7-18 Creatinine 0.6 mg/dL Normal 0.6-1.3 Glom Filtration Rate, Estimate >60 mL/min >60 If >60 mL/min >60 9 BUN/Creat 18.3 ratio Sodium 137 mmol/L Normal [...] 80 U/L Normal 45-117 CBC W/Automated 03/29/2019 [facility] White Blood 8.9 K/uL Normal 3.1-10.[address] [place] [address] [phone] Red Blood Count 5.23 M/uL Normal 3.90-5.40 [...] 40.4-72.8 Lymph % 26.9 % Normal 20.0-42.0 Pepin % 7.2 % Normal 4.3-13.2 Eo% 3.1 % Normal 0.0-6.6 Bas% 0.9 % Normal 0.0-1.1 Immature Grans 0.2 % Normal 0.0-5.0 NRBC % 0.0 /100WBC < 10/ 100 WBC Neut# 5.48 K/uL Normal 1.8-7.0 Lymph # 2.39 K/uL Normal 1.0-4.0 Pepin # 0.64 K/uL Normal 0.3-0.9 Eos # 0.28 K/uL Normal 0.0-0.5 Baso # 0.08 K/uL Normal 0.0-0.1 Immature Grans Absolute 0.02 K/uL NRBC # 0.00 K/uL Hemoglobinopathy Profile 03/29/2019 [facility] Hgb A 98.8 % 96.4-98.[address] [place] [address] [phone] Hgb, 0.0 % 0.0-2.0 Hgb S 0.0 % 0.0 Hgb C 0.0 % 0.0 Hgb A2 1.2 % Low 1.8-3.2 Hgb Variant 0 % 0.0 Interpretation: (SEE NOTE) 10 1 D64.9 Z98.84 R53.83 T88.7XXA 2 D64.9 Z98.84 R53.83 D50.9 3 Instrument flagged sample for slide review. Less than 10% Bands seen, no other immature WBC's seen. Platelet estimate = MODERATELY INCREASED 4 Note: Persistent reduction for 3 months or more in an eGFR <60 mL/min/1.73 m2 defines CKD. Patients with eGFR values >/=60 mL/min/1.73 m2 may also have CKD if evidence of persistent proteinuria is present. The original MDRD equation for estimated GFR is not valid for patients less than 18 years of age. Additional information may be found at www.kdoqi.org. 5 R64.9 R53.83 6 INDICATED,SLIDE SENT Peripheral smear review: Microcytic hypochromatic RBCs without nucleated cells or immaturity. Normal number of platelets without morphological abnormalities. Granulocytes concist mainly of segmented forms and monocytes. No immaturity or blasts. [place] 03-30-19 04/02/19 1049: 7 Performed at: RN - [facility] [address] [id number] Erp Developer: Tamara Abreu MD, Phone: [phone] Vitamin D deficiency has been defined by the [place] of [employer] and an Endocrine Society practice guideline as a level of serum 25-OH vitamin D less than 20 ng/mL (1,2). The Endocrine Society went on to further define vitamin D insufficiency as a level between 21 and 29 ng/mL (2). 1. IOM ([place] [employer]). 2010. Dietary reference intakes for calcium and D. [place]: The National Academies Press. 2. Shayy MF, Larry NC, Kartik CEE, et al. Evaluation, treatment, and prevention of vitamin D deficiency: an Endocrine Society clinical practice guideline. JCEM. 2010; 96(7):1911-30. Performed at: RN - [facility] [address] [id number] Erp Developer: Tamara Abreu MD, Phone: [phone] Note: Persistent reduction for 3 months or more in an eGFR <60 mL/min/1.73 m2 defines CKD. Patients with eGFR values >/=60 mL/min/1.73 m2 may also have CKD if evidence of persistent proteinuria is present. The original MDRD equation for estimated GFR is not valid for patients less than 18 years of age. Additional information may be found at www.kdoqi.org. 10 Normal adult hemoglobin present. Low Hgb A2 may indicate an alpha-thalassemia or iron deficiency. Suggest clinical and hematologic correlation. 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 Office Visit 03/29/2019 3:30p Oncology Office Kyle D64.9 Anemia, Nahomi, DO unspecified Z98.84 Bariatric surgery status R53.83 Other fatigue Assessments Date Code Description Provider 04/17/2019 D50.9 Iron deficiency anemia, unspecified Asha Boo, PLANNER 04/17/2019 T50.905A Adverse effect of unspecified drugs, Asha Boo , PLANNER medicaments and biological substances, initial encounter 04/17/2019 F06.4 Anxiety disorder due to known Asha Boo, PLANNER physiological condition 03/29/2019 D64.9 Anemia, unspecified Nahomi Wright, 03/29/2019 Z98.84 Bariatric surgery status Nahomi Wright, 03/29/2019 R53.83 Other fatigue Nahomi Wright DO Plan of Treatment 04/17/2019 - Asha Boo, NPD50.9 Iron deficiency anemia, unspecifiedComments:Unfortunately, patient had an adverse reaction to iron sucrose. This medication will need to be discontinued. Ferrlecit will be ordered and insurance authorization will be obtained.Follow up:Patient will be scheduled for infusion once insurance authorization is complete.T50.905A Adverse effect of unspecified drugs, medicaments and biological substances, initial encounterComments:Iron sucrose will be discontinued.F06.4 Anxiety disorder due to known physiological conditionComments:Patient is quite anxious as she is concerned that she will have adverse reactions to other iron formulations. Patient states that "I just feel so bad and exhausted all the time, I can barely do anything." We discussed at length that her anemia is severe and it does explain the vast majority of her symptoms. Functional Status Description No Information Available Mental Status Description No Information Available Referrals Description No Information Available
--- OUTSIDE RECORDS SUMMARY | 2019-06-16 07:45 | XMS REPORT | Continuity of Care Document ---
:1980 External Reference #:[id number] Author Name Asha oBo, BRILLIANDEER LOPPER Address [address] [place] [address] Care Team Providers Name Role Phone Laila Thompson PA - Physician Program Strategist Care Team Information Machine Sizer [phone] Problems Active Problems Provider Date Malaise and [...] Available Vital Signs Date Vital Result Comment 04/20/2019 12:21pm BP Systolic 132 mmHg BP Diastolic 75 mmHg Body Temperature 99.1 F Heart Rate 71 /min Respiratory Rate 18 /min 04/17/2019 8:34am BP Systolic 134 mmHg right BP Diastolic 78 mmHg right Body Temperature 98.4 F Heart Rate 68 /min Respiratory Rate 16 /min Weight 270.50 lb Pain Level 0 O2 % BldC Oximetry 99 % Ra Results Test Acquired Facility Test Result H/L Range Note Date Laboratory test 04/20/2019 [facility] Complement, Total < 10 U/mL Low [id number] 1, [address] ([address]) [address] [place] [address] [phone] Immunoglobulins 04/20/2019 [facility] Immunoglobulin [phone] A/G/M, QN, Ser [address] G,Quant,Serum mg/[place] [address] [phone] Immunoglobulin A 322 mg/dL 87-352 Immunoglobulin M 266 mg/dL High 26-217 Laboratory test 04/20/2019 [facility] Immunoglobulin 77 IU/mL 6-[address] E,[place] [address] [phone] Histamine (B) 83 ng/mL 12-127 3 Serotonin,Serum 10 ng/mL 0-420 4 LDH 155 U/L Normal 84-246 RBC Morphology Only 04/17/2019 [facility] Hypochromia 1+ [address] [place], [place] [id number] [phone] Poikilocytosis 1+ Anisocytosis 1+ Microcytosis 1+ Spherocyte 0-1+ Schistocytes 0-1+ Target Cells 0-1+ Laboratory test 04/17/2019 [facility] Path <pending> finding [address] Review: [place] [address] [phone] Slide Review 04/17/2019 [facility] Slide . [address] [place] [address] [phone] Iron-Tibc-%Sat 04/17/2019 [facility] Serum Iron 13 g/dL Critical low 50-[address] [place] [address] [phone] Total Iron Binding Capacity 485 g/dL High 250-450 Transferrin %Saturation 3 % Low 12-57 Laboratory test 04/17/2019 [facility] Ferritin 15 ng/mL Normal 8-252 finding [address] [place] [address] [phone] Comprehensive 04/17/2019 [facility] Glucose 97 mg/dL Normal 74-106 Metabolic Panel [address] [place] [address] [phone] BUN 13 mg/dL Normal 7-18 Creatinine 0.6 mg/dL Normal 0.6-1.3 Glom Filtration Rate, Estimate >60 mL/min >60 If >60 mL/min >60 7 BUN/Creat 21.6 ratio Sodium 137 mmol/L Normal [...] 69 U/L Normal 45-117 CBC W/Automated 04/17/2019 [facility] White Blood 7.7 K/uL Normal 3.1-10.[address] Count [place], [place] [address] [phone] Red Blood Count 5.45 M/uL High 3.90-5.40 [...] 40.4-72.8 Lymph % 28.7 % Normal 20.0-42.0 [place] % 7.3 % Normal 4.3-13.2 Eo% 2.9 % Normal 0.0-6.6 Bas% 0.9 % Normal 0.0-1.1 Immature Grans 0.4 % Normal 0.0-5.0 NRBC % 0.0 /100WBC < 10/ 100 WBC Neut# 4.62 K/uL Normal 1.8-7.0 Lymph # 2.21 K/uL Normal 1.0-4.0 [place] # 0.56 K/uL Normal 0.3-0.9 Eos # 0.22 K/uL Normal 0.0-0.5 Baso # 0.07 K/uL Normal 0.0-0.1 Immature Grans Absolute 0.03 K/uL NRBC # 0.00 K/uL Laboratory test 03/29/2019 [facility] Path Review: <pending> [address] [place] [address] [phone] Differential-WBC 03/29/2019 [facility] Total Cells 100 #CELLS Confirm [address] [place] [place] [address] [phone] Band% 1 % Normal 0-8 Neutrophils% 64 % Normal 33-73 Lymph% 22 % Normal 20-42 Monocyte% 6 % Normal 0-10 Eosinophil% 7 % High 0-5 Platelet Estimate SLIGHT INCREASE Hypochromia 0-1+ Poikilocytosis 2+ Microcytosis 2+ [place] Cells 0-1+ Acanthocytes 0-1+ Path Review: 03/29/2019 [facility] Path Review: INDICATED,SLIDE [address] <SEE NOTE> [place] [address] [phone] Slide Review 03/29/2019 [facility] Slide Review DIFF ORDERED [address] [place] [address] [phone] Immunoglobulins 03/29/2019 [facility] Immunoglobulin 1045 mg/dL 70 A/G/M, QN, Ser [address] G,Quant,Serum 0- [place] [address] 16 [phone] Immunoglobulin A 333 mg/dL 87-352 Immunoglobulin M 285 mg/dL High 26-217 10 Laboratory test 03/29/2019 [facility] LDH 152 U/L Normal 84-[address] [place] [address] [phone] Reticulocyte 03/29/2019 [facility] Retic 17.7 pg Low 27.9-37.0 Count,Automated [address] [place] [address] [phone] Retic % 1.3 % Normal 0.5-1.8 Absolute Retic 69 K/uL Normal 24-84 Immature Retic Fraction 21.2 % High 2.9-15.5 Laboratory 03/29/2019 [facility] Vitamin 11.4 Low 30.0-100.0 11 test finding [address] D,25-Hydroxy ng/[place] [address] [phone] Vitamin B12 03/29/2019 [facility] Vitamin B12 619 Normal 193-[address] pg/[place] [address] [phone] Folic Acid 16.8 ng/mL Normal 3.1-17.5 Laboratory test 03/29/2019 [facility] Ferritin 3 ng/mL Low 8-252 finding [address] [place] [address] [phone] Iron-Tibc-%Sat 03/29/2019 [facility] Serum Iron 12 g/dL Critical low 50-170 [address] [place] [address] [phone] Total Iron Binding Capacity 509 g/dL High 250-450 Transferrin %Saturation 2 % Low 12-57 Comprehensive 03/29/2019 [facility] Glucose 104 mg/dL Normal 74-106 Metabolic Panel [address] [place] [address] [phone] BUN 11 mg/dL Normal 7-18 Creatinine 0.6 mg/dL Normal 0.6-1.3 Glom Filtration Rate, Estimate >60 mL/min >60 If >60 mL/min >60 12 BUN/Creat 18.3 ratio Sodium 137 mmol/L Normal [...] 80 U/L Normal 45-117 CBC W/Automated 03/29/2019 [facility] White Blood 8.9 K/uL Normal 3.1-10.[address] [place] [address] [phone] Red Blood Count 5.23 M/uL Normal 3.90-5.40 [...] 40.4-72.8 Lymph % 26.9 % Normal 20.0-42.0 [place] % 7.2 % Normal 4.3-13.2 Eo% 3.1 % Normal 0.0-6.6 Bas% 0.9 % Normal 0.0-1.1 Immature Grans 0.2 % Normal 0.0-5.0 NRBC % 0.0 /100WBC < 10/ 100 WBC Neut# 5.48 K/uL Normal 1.8-7.0 Lymph # 2.39 K/uL Normal 1.0-4.0 [place] # 0.64 K/uL Normal 0.3-0.9 Eos # 0.28 K/uL Normal 0.0-0.5 Baso # 0.08 K/uL Normal 0.0-0.1 Immature Grans Absolute 0.02 K/uL NRBC # 0.00 K/uL Hemoglobinopathy Profile 03/29/2019 [facility] Hgb A 98.8 % 96.4-98.[address] [place] [address] [phone] Hgb, 0.0 % 0.0-2.0 Hgb S 0.0 % 0.0 Hgb C 0.0 % 0.0 Hgb A2 1.2 % Low 1.8-3.2 Hgb Variant 0 % 0.0 Interpretation: (SEE NOTE) 13 1 D64.9 Z98.84 R53.83 T88.7XXA 2 Performed at: [address] [id number] Distributor Advertising Material: Tamara Abreu MD, Phone: [phone] 3 Results for this test are for research purposes only by the assay's steward/stewardess tourist class. The performance characteristics of this product have not been established. Results should not be used as a diagnostic procedure without confirmation of the diagnosis by another medically established diagnostic product or procedure. 4 Performed at: [address] [id number] Distributor Advertising Material: Tamara Abreu MD, Phone: [phone] Performed at: [address] [id number] Distributor Advertising Material: Seymour Bowling MD, Phone: [phone] 5 D64.9 Z98.84 R53.83 D50.9 6 Instrument flagged sample for slide review. Less than 10% Bands seen, no other immature WBC's seen. Platelet estimate = MODERATELY INCREASED 7 Note: Persistent reduction for 3 months or more in an eGFR <60 mL/min/1.73 m2 defines CKD. Patients with eGFR values >/=60 mL/min/1.73 m2 may also have CKD if evidence of persistent proteinuria is present. The original MDRD equation for estimated GFR is not valid for patients less than 18 years of age. Additional information may be found at www.kdoqi.org. 8 R64.9 R53.83 9 INDICATED,SLIDE SENT Peripheral smear review: Microcytic hypochromatic RBCs without nucleated cells or immaturity. Normal number of platelets without morphological abnormalities. Granulocytes concist mainly of segmented forms and monocytes. No immaturity or blasts. [place] 03-30-19 04/02/19 1049: 10 Performed at: [address] [id number] Distributor Advertising Material: Tamara Abreu MD, Phone: [phone] 11 Vitamin D deficiency has been defined by the [employer] of [employer] and an Endocrine Society practice guideline as a level of serum 25-OH vitamin D less than 20 ng/mL (1,2). The Endocrine Society went on to further define vitamin D insufficiency as a level between 21 and 29 ng/mL (2). 1. IOM ([employer]). 2010. Dietary reference intakes for calcium and D. [place]: The National Academies Press. 2. Shayy MF, Larry STOREY, Kartik CEE, et al. Evaluation, treatment, and prevention of vitamin D deficiency: an Endocrine Society clinical practice guideline. JCEM. 2010; 96(7):1911-30. Performed at: - [facility] [id number] Distributor Advertising Material: Tamara Abreu MD, Phone: [phone] Note: Persistent reduction for 3 months or more in an eGFR <60 mL/min/1.73 m2 defines CKD. Patients with eGFR values >/=60 mL/min/1.73 m2 may also have CKD if evidence of persistent proteinuria is present. The original MDRD equation for estimated GFR is not valid for patients less than 18 years of age. Additional information may be found at www.kdoqi.org. 13 Normal adult hemoglobin present. Low Hgb A2 may indicate an alpha-thalassemia or iron deficiency. Suggest clinical and hematologic correlation. Performed at: - [facility] [id number] Distributor Advertising Material: Tamara Abreu MD, Phone: [phone] Procedures Description No Information Available Medical Devices Description No Information Available Encounters Type Date Location Provider Dx Diagnosis Office Visit 04/20/2019 Oncology Office Asha Boo T50.905A Adverse effect of 3:30p B., BRILLIANDEER LOPPER unsp drug/meds/biol subst, init D50.9 Iron deficiency anemia, unspecified Office Visit 04/17/2019 8:30a Infusion Center Raj[facility]ev D50.9 Iron deficiency Asha Simons NP anemia, unspecified T50.905A Adverse effect of unsp drug/meds/biol subst, init F06.4 Anxiety disorder due to known physiological condition Office Visit 03/29/2019 3:30p Oncology Office Kyle D64.9 Anemia, Nahomi, DO unspecified Z98.84 Bariatric surgery status R53.83 Other fatigue Assessments Date Code Description Provider 04/20/2019 T50.905A Adverse effect of unspecified drugs, Moran, Asha B. , BRILLIANDEER LOPPER medicaments and biological substances, initial encounter 04/20/2019 D50.9 Iron deficiency anemia, unspecified Rajeev, Asha B., BRILLIANDEER LOPPER 04/17/2019 D50.9 Iron deficiency anemia, unspecified Moran, Asha B., BRILLIANDEER LOPPER 04/17/2019 T50.905A Adverse effect of unspecified drugs, Rajeev, Asha B. , BRILLIANDEER LOPPER medicaments and biological substances, initial encounter 04/17/2019 F06.4 Anxiety disorder due to known Rajeev, Asha B., BRILLIANDEER LOPPER physiological condition 03/29/2019 D64.9 Anemia, unspecified Nahomi Wright, 03/29/2019 Z98.84 Bariatric surgery status Nahomi Wright DO 03/29/2019 R53.83 Other fatigue Nahomi Wright DO Plan of Treatment Future Appointment(s):04/30/2019 8:30 am - Infusion Chair 7 at Infusion [facility]204/20/2019 - Asha Boo, NPT50.905A Adverse effect of unspecified drugs, medicaments and biological substances, initial encounterComments: Ferrlecit was interrupted after approximately half of the dose was administered as patient did develop a rash. Patient was administered 500 mL normal saline IV and was observed with frequent vital signs. Mild rash did initially spread to chest wall but completely resolved prior to patient's departure. Patient's vital signs remained stable. Patient did not develop any throat tightness, tongue swelling, or worsening shortness of breath. As patient did have a delayed adverse response to iron sucrose that was significant for facial and tongue swelling, she was prescribed a Medrol pack to have available at home if her symptoms returned. Blood work to evaluate for allergic reaction was drawn. Patient was departed home from the unit in no acute distress.Follow up:Based on labsD50.9 Iron deficiency anemia, unspecifiedComments:Iron sucrose was discontinued due to delayed adverse reaction including tongue swelling and facial edema. Patient had possible adverse reaction to Ferrlecit approximately 30 minutes into her first dose. However, small rash did resolve when infusion was stopped and patient was administered normal saline. Patient did not require additional intervention past that. She was prescribed a Medrol pack tohave on hand if she develops symptoms over the weekend. If there is no delayed reaction, Ferrlecit will be considered with premedication. Functional Status Description No Information Available Mental Status Description No Information Available Referrals Description No Information Available
[2019-06-16 08:41] LABS: Influenza A Molecular Negative (Negative); Influenza B Molecular Negative (Negative)
[2019-06-16 08:58] VITALS: BP 149/95
--- NOTE | 2019-06-16 09:21 | UC ---
Respiratory Complaint HPI - HPI Summary HPI Summary: cough x 3 days , cough is dry nasal congestion , pnd, sore throat, chest tightness, sob and wheezing, low grade fever chills , has a friend who is in quarantine for COVID19 - History of Current Complaint Chief Complaint: UCRespiratory Stated Complaint: FEVER, COUGH, SOB, ASMTHA Time Seen by Provider: 06/16/19 07:42 Hx Obtained From: Patient Hx Last Menstrual Period: 05/10/19 ?: No Onset/Duration: Gradual Onset, Lasting Days - 3, Still Present Timing: Constant Severity Initially: Moderate Severity Currently: Moderate Pain Intensity: 6 Character: Cough: Nonproductive Aggravating Factors: Exertion, Deep Breaths Associated Signs And Symptoms: Positive: Dyspnea, Fever, Chills, Wheezing. Negative: Pleuritic Chest Pain - Allergies/Home Medications Allergies/Adverse Reactions: Allergies Allergy/AdvReac Type Severity Reaction Status Date / Time azithromycin Allergy Nausea And Verified 06/16/19 07:47 Vomiting erythromycin base Allergy Nausea And Verified 06/16/19 07:47 Vomiting Home Medications: Home Medications Acetaminophen [Pain Relief] 650 mg PO Q4H PRN 06/16/19 [History Confirmed ] Albuterol HFA INHALER* [Ventolin HFA Inhaler*] 2 puff INH Q6H PRN 06/16/19 [ History Confirmed 06/16/19] Sertraline* [Zoloft*] 50 mg PO DAILY 06/16/19 [History Confirmed 06/16/19] PMH/Surg Hx/FS Hx/Imm Hx Previously Healthy: Yes - Surgical History Surgical History: Yes Surgery Procedure, Year, and Place: ear tubes. bariatric Surgery - Family History Known Family History: Positive: Diabetes - Social History Alcohol Use: Rare Substance Use Type: None Smoking Status (MU): Never Smoked Tobacco - Immunization History Most Recent Influenza Vaccination: not this season Vaccination Up to Date: Yes Review of Systems All Other Systems Reviewed And Are Negative: Yes Constitutional: Positive: Fever, Chills, Fatigue Skin: Positive: Negative Eyes: Positive: Negative ENT: Positive: Sore Throat, Nasal Discharge Respiratory: Positive: Cough Is Patient Immunocompromised?: No Physical Exam Triage Information Reviewed: Yes Appearance: Well-Appearing, No Pain Distress, Well-Nourished Vital Signs: Initial Vital Signs Temp 98.4 F 06/16/19 08:25 Pulse 94 06/16/19 08:25 Resp 22 06/16/19 08:25 BP 149/95 06/16/19 08:25 Pulse Ox 99 06/16/19 08:25 Vital Signs Reviewed: Yes Eye Exam: Normal Eyes: Positive: Conjunctiva Clear ENT: Positive: Normal ENT inspection, Hearing grossly normal, Pharynx normal, Nasal congestion, TMs normal Neck: Positive: Supple, Nontender, No Lymphadenopathy Respiratory: Positive: Chest non-tender, Lungs clear, Normal breath sounds Cardiovascular: Positive: RRR, No Murmur, Pulses Normal Skin Exam: Normal Respiratory Course/Dx - Differential Dx/Diagnosis Provider Diagnosis: URI (upper respiratory infection) Discharge ED - Sign-Out/Discharge Documenting (check all that apply): Patient Departure All imaging exams completed and their final reports reviewed: No Studies - Discharge Plan Condition: Stable Disposition: HOME Patient Education Materials: Upper Respiratory Infection (ED) Forms: COVID-19 Tested & Isolation, *Work Release Referrals: Zakiya Zuluaga MD [Primary Care Provider] - If Needed Additional Instructions: will testing for COVID19 will call your with the results in about 7 days cont. with self Quarantine until having the lab results - Billing Disposition and Condition Condition: STABLE Disposition: Home
--- NOTE | 2019-06-19 08:46 | UC ---
- Progress Note Progress Note: please call the pt. with the lab results COVID19 undetected may discontinue self quarantine , cont. with social distancing please call the pt. with the lab results Course/Dx - Diagnoses Provider Diagnoses: URI (upper respiratory infection) Discharge ED - Sign-Out/Discharge Documenting (check all that apply): Patient Departure All imaging exams completed and their final reports reviewed: No Studies - Discharge Plan Condition: Stable Disposition: HOME Patient Education Materials: Upper Respiratory Infection (ED) Forms: COVID-19 Tested & Isolation, *Work Release Referrals: Zakiya Zuluaga MD [Primary Care Provider] - If Needed Additional Instructions: will testing for COVID19 will call your with the results in about 7 days cont. with self Quarantine until having the lab results - Billing Disposition and Condition Condition: STABLE Disposition: Home
== END 2019-06-16 09:23 | disposition home or self-care (01) ==
LOC: UCCORT 07:29
DX: J06.9 Acute upper respiratory infection, unspecified (principal); Z20.828 Contact with and (suspected) exposure to other viral communicable diseases; Z88.1 Allergy status to other antibiotic agents
CPT/HCPCS: 87651; 99211; G0463; U0002